=== PATIENT | male | born 1985 | race Caucasian/White ===

== ENCOUNTER → 2016-09-28 | Outpatient (CLI) | payer BC ==
--- NOTE | 2016-09-29 08:55 | XR ---
EXAMINATION TYPE: 3 views thoracic spine. 5 views lumbar spine. DATE OF EXAM: 09/28/2016 5:04 PM COMPARISON: NONE HISTORY: 31-year-old male scoliosis and low back pain. FINDINGS: Thoracic spine: There is gentle dextroconvex curvature of the thoracic spine. There are 12 rib-bearing thoracic verte bral bodies. All pedicles are visualized. No segmentation anomaly seen. Alignment is maintained. Ther e is some mild endplate spondylosis in the lower thoracic spine with anterior endplate spur. Vertebra l body heights are preserved. Lumbar spine: 5 lumbar type vertebral bodies. A right oblique view is missing. Suggestion of minimal disc interspac e narrowing at L4-L5 and associated mild facet degenerative change. Vertebral body heights are preser neda and alignment is maintained. IMPRESSION: 1. Gentle dextroconvex curvature of the thoracic spine could reflect underlying scoliosis or muscle s pasm. 2. Mild endplate spondylosis lower thoracic spine without vertebral compression collapse or malalignm ent. 3. Mild degenerative disc disease in the lumbar spine especially at L4-L5 with mild facet arthropathy . No vertebral compression collapse or malalignment. 4. The right oblique view of the lumbar spine is missing. There are 2 left oblique views submitted.
== END | disposition home or self-care (01) ==
LOC: RADXRYALE 15:06
PROVIDERS: ATTEND Nurse Practitioner Family
DX: M41.9 Scoliosis, unspecified (principal); M51.36 Other intervertebral disc degeneration, lumbar region; M12.88 Other specific arthropathies, not elsewhere classified, other specified site
CPT/HCPCS: 72072; 72110

== ENCOUNTER → 2018-04-20 | Outpatient (CLI) | payer BC ==
--- NOTE | 2018-04-20 10:10 | XR ---
EXAMINATION TYPE: XR orbit detect foreign body DATE OF EXAM: 04/20/2018 COMPARISON: NONE HISTORY: MRI clearance TECHNIQUE: 3 views of the orbits are submitted. FINDINGS: No radiopaque foreign body identified. Paranasal sinuses well aerated. Osseous structures i ntact. IMPRESSION: No evidence for radiopaque foreign body.
--- NOTE | 2018-04-20 12:57 | MR ---
EXAMINATION TYPE: MR lumbar spine wo con DATE OF EXAM: 04/20/2018 COMPARISON: HISTORY: Low back pain TECHNIQUE: Multiplanar, multisequence images of the lumbar spine were acquired. FINDINGS: Vertebral body heights and alignment are maintained. Multilevel disc desiccation is seen at L4-L5 and L5-S1. Conus medullaris is unremarkable terminating at L1. L1-L2: Normal disc appearance without desiccation. No herniation, protrusion or disc bulging. No ca nal stenosis is present. Foramina are patent bilaterally. L2-L3: Normal disc appearance without desiccation. No herniation, protrusion or disc bulging. No ca nal stenosis is present. Foramina are patent bilaterally. L3-L4: Small broad-based disc bulge is seen without focality. No spinal canal stenosis nor neural for aminal narrowing. L4-L5: There is a small central disc herniation superimposed upon a broad-based disc bulge resulting in mild bilateral neural foraminal narrowing. There is mild impression upon the ventral thecal sac wi thout significant spinal canal stenosis. Mild facet arthropathy is also seen at this level. L5-S1: There is a left foraminal disc herniation and annular tear creating mild left neural foraminal narrowing. Discogenic endplate changes are seen at this level. Mild facet arthropathy is also noted. No right neural foraminal narrowing or spinal canal stenosis. IMPRESSION: 1. Small central disc herniation at L4-L5 superimposed upon a broad-based disc bulge with resultant m ild bilateral neural foraminal narrowing. 2. Left foraminal disc herniation at L5-S1 creating mild left neural foraminal narrowing. 3. Small disc bulge at L3-L4 without spinal canal stenosis nor neural foraminal narrowing.
== END | disposition home or self-care (01) ==
LOC: RADMRIMAIN 09:36
PROVIDERS: ATTEND Family Medicine
DX: Z01.818 Encounter for other preprocedural examination (principal); M99.73 Connective tissue and disc stenosis of intervertebral foramina of lumbar region; M51.27 Other intervertebral disc displacement, lumbosacral region
CPT/HCPCS: 70030; 72148

== ENCOUNTER 2018-07-04 07:42 | Day surgery (SDC) | payer BC ==
[2018-06-29 17:58] VITALS: BMI 25.7
[~2018-07-04 07:42] MED LIST: LACTATED RINGERS 1,000 ML IV SCH; LIDOCAINE 1% 20 ML VIAL (10MG/ML) FOR IV START INTRADERMA PRN
[2018-07-04 08:06] VITALS: RESP 16; TEMP 98.8
[2018-07-04] MEDS ORDERED: PROPOFOL 10 MG/ML 20 ML VIAL IV ONE (08:43)
--- NOTE | 2018-07-04 09:10 | P.PCN ---
Date of Procedure: 07/04/18 Procedure(s) Performed: Procedure: Total colonoscopy. Preoperative diagnosis: Change in bowel habits and family history of Crohn's disease in his brother. Postoperative diagnosis: Exam of the colon and terminal ileum within normal limits. Preparation: HalfLytely prep. Sedation: Was provided by anesthesia. Brief clinical history: The patient is a 53-year-old male who is scheduled for this evaluation because of bowel issues including constipation that requires treatment with amitiza for relief. This was a change for him. There is also family history of Crohn's disease in his brother. This evaluation is to assess for inflammatory bowel disease or other pathology. Procedure: With the patient on his left lateral decubitus position and after informed consent and adequate sedation, the perianal area was inspected and it did not show any fissures or fistulas. There were no masses felt on digital rectal examination. The Olympus CFH 190L video colonoscope was then inserted in the rectum in the usual fashion and advanced to the cecum. I intubated the ileocecal valve and examined the terminal ileum. Terminal ileum and colon appeared healthy with no edema, erythema, friability, ulceration, exudation or spontaneous bleeding. No polyps or tumors were seen or any obvious diverticular disease or other pathology. I retroflexed the endoscope in the rectum before the endoscope was withdrawn. The patient tolerated the procedure well. Plan: The patient was reassured. Discussed dietary measures. He will follow up with you as planned and further plans will be made based on his course. I will be happy to see him in the future if needed.
[2018-07-04 09:28] VITALS: BP 142/90; PULSE 71
== END 2018-07-04 09:49 | disposition home or self-care (01) ==
LOC: ORWHC2ENDO 07:42
DX: R19.4 Change in bowel habit (principal); Z83.79 Family history of other diseases of the digestive system; K59.00 Constipation, unspecified; Z79.1 Long term (current) use of non-steroidal anti-inflammatories (NSAID); Z79.899 Other long term (current) drug therapy
CPT/HCPCS: 45378; J2704

== ENCOUNTER 2019-11-03 10:13 | Emergency (ER) | payer BC ==
[2019-11-03 10:24] VITALS: RESP 18; TEMP 98.2
[2019-11-03] MEDS ORDERED: RX INFO: IV CONTRAST WAS GIVEN 1 EACH MISC MISCELLANE PRN (10:33)
--- NOTE | 2019-11-03 10:39 | ED ---
General Adult HPI - General Chief complaint: Chest Pain Stated complaint: Chest pain Time Seen by Provider: 11/03/19 10:24 Source: patient, RN notes reviewed Mode of arrival: ambulatory Limitations: no limitations - History of Present Illness Initial comments: 34-year-old male with a past medical history of hypertension presents to the emergency department for a chief complaint of chest pain. Patient has had left- sided anterior chest pain for the past month. Patient states this causes numbness tingling in his left arm. Patient states holding his left arm up to do anything makes this numbness worse. States it starts at 10 minutes in the left arm. Denies any neck pain. Patient is still able to go on his jogs and 15 mile bike rides. He does not have any worsening chest pain with this although may be some shortness of breath. Patient was started on antihypertensives and he saw his doctor last week for this. States his blood pressure still been high and when he checked it at home it was different in his 2 arms. Patient reports he had just started on losartan hydrochlorothiazide one week ago. Patient denies smoking history. Denies hypercholesterolemia. Denies history of diabetes. Patient has no other complaints at this time including shortness of breath, abdominal pain, nausea or vomiting, headache, or visual changes. - Related Data Home Medications Medication Instructions Recorded Confirmed Losartan/Hydrochlorothiazide 1 tab PO DAILY 11/03/19 11/03/19 [Losartan-Hctz 100-12.5 mg Tab] traMADol HCL 50 mg PO Q4H PRN 11/03/19 11/03/19 Allergies Allergy/AdvReac Type Severity Reaction Status Date / Time No Known Allergies Allergy Verified 11/03/19 10:50 Review of Systems ROS Statement: Those systems with pertinent positive or pertinent negative responses have been documented in the HPI. ROS Other: All systems not noted in ROS Statement are negative. Past Medical History Past Medical History: Hypertension Additional Past Medical History / Comment(s): BACK PAIN History of Any Multi-Drug Resistant Organisms: None Reported Past Surgical History: Back Surgery, Hernia Repair Additional Past Surgical History / Comment(s): HERNIA REPAIR IN 7TH GRADE. Past Anesthesia/Blood Transfusion Reactions: Postoperative Nausea & Vomiting (PONV) Past Psychological History: No Psychological Hx Reported Smoking Status: Never smoker Past Alcohol Use History: Occasional Past Drug Use History: None Reported - Past Family History Mother Family Medical History: No Reported History General Exam Limitations: no limitations General appearance: alert, in no apparent distress Head exam: Present: atraumatic, normocephalic, normal inspection Eye exam: Present: normal appearance, PERRL, EOMI. Absent: scleral icterus, conjunctival injection ENT exam: Present: normal exam, mucous membranes moist Neck exam: Present: normal inspection, full ROM. Absent: tenderness, meningismus, lymphadenopathy Respiratory exam: Present: normal lung sounds bilaterally. Absent: respiratory distress, wheezes, rales, rhonchi, stridor Cardiovascular Exam: Present: regular rate, normal rhythm, normal heart sounds. Absent: systolic murmur, diastolic murmur, rubs, gallop, clicks GI/Abdominal exam: Present: soft, normal bowel sounds. Absent: distended, tenderness, guarding, rebound, rigid Extremities exam: Present: normal inspection (Normal inspection of the bilateral upper extremities.), full ROM (Full range of motion of the bilateral upper extremities.), normal capillary refill (Capillary refill less than 2 seconds, radial pulses 2+ in the bilateral upper extremities.), other (Sensation intact bilaterally in upper extremities.) Course Vital Signs 11/03/19 11/03/19 11/03/19 10:19 10:24 11:59 Temperature 98.2 F Pulse Rate 72 85 Respiratory 18 18 Rate Blood Pressure 128/87 Blood Pressure 159/115 [Left Arm] Blood Pressure 177/104 [Right Arm] O2 Sat by Pulse 100 97 Oximetry Medical Decision Making - Medical Decision Making Patient initially presents hypertensive however this did improve throughout his stay. Patient concerned about different blood pressures in his arms and associated left-sided chest pain times one month. Patient states he noticed this morning when he checked his blood pressure on his arms for times.. Blood pressure is 18 mmHg difference systolically. Patient has a history of hypertension, no history of diabetes, hypercholesterolemia, smoking. EKG shows a normal sinus rhythm with a ventricular rate of 70. CBC CMP unremarkable. Troponin is negative. CT aorta chest abdomen pelvis shows a punctate 1 mm nonobstructing left renal stone. Heterogenous enhancement of the spleen, recommending short-term follow-up to exclude mass. The aorta is of normal caliber. Pain likely to be more musculoskeletal in nature given positioning of arm increases the paresthesia in the left arm. Chest pain is reproducible on exam. Patient will follow-up with his doctor for further management and ultrasound of the spleen which was discussed with him. He will also be given referral to orthopedics. He will return here for any worsening symptoms. - Lab Data Result diagrams: 11/03/19 10:40 11/03/19 10:40 Lab Results 11/03/19 11/03/19 11/03/19 Range/Units 10:40 10:40 10:40 WBC 5.9 (3.8-10.6) k/uL RBC 4.77 (4.30-5.90) m/uL Hgb 15.4 (13.0-17.5) gm/dL Hct 45.0 (39.0-53.0) % MCV 94.3 (80.0-100.0) fL MCH 32.4 (25.0-35.0) pg MCHC 34.3 (31.0-37.0) g/dL RDW 12.9 (11.5-15.5) % Plt Count 143 L (150-450) k/uL Neutrophils % 56 % Lymphocytes % 29 % Monocytes % 7 % Eosinophils % 3 % Basophils % 1 % Neutrophils # 3.3 (1.3-7.7) k/uL Lymphocytes # 1.7 (1.0-4.8) k/uL Monocytes # 0.4 (0-1.0) k/uL Eosinophils # 0.2 (0-0.7) k/uL Basophils # 0.0 (0-0.2) k/uL PT (9.0-12.0) sec INR (<1.2) APTT (22.0-30.0) sec Sodium 137 (137-145) mmol/L Potassium 4.3 (3.5-5.1) mmol/L Chloride 104 (98-107) mmol/L Carbon Dioxide 20 L (22-30) mmol/L Anion Gap 13 mmol/L BUN 20 (9-20) mg/dL Creatinine 1.01 (0.66-1.25) mg/dL Est GFR (CKD-EPI)AfAm >90 (>60 ml/min/1.73 sqM) Est GFR (CKD-EPI)NonAf >90 (>60 ml/min/1.73 sqM) Glucose 100 H (74-99) mg/dL Calcium 10.2 (8.4-10.2) mg/dL Magnesium 2.0 (1.6-2.3) mg/dL Total Bilirubin 1.0 (0.2-1.3) mg/dL AST 40 (17-59) U/L ALT 27 (4-49) U/L Alkaline Phosphatase 101 (38-126) U/L Troponin I <0.012 (0.000-0.034) ng/mL Total Protein 8.0 (6.3-8.2) g/dL Albumin 4.9 (3.5-5.0) g/dL Amylase 82 (30-110) U/L Lipase 115 (23-300) U/L 11/03/19 Range/Units 11:15 WBC (3.8-10.6) k/uL RBC (4.30-5.90) m/uL Hgb (13.0-17.5) gm/dL Hct (39.0-53.0) % MCV (80.0-100.0) fL MCH (25.0-35.0) pg MCHC (31.0-37.0) g/dL RDW (11.5-15.5) % Plt Count (150-450) k/uL Neutrophils % % Lymphocytes % % Monocytes % % Eosinophils % % Basophils % % Neutrophils # (1.3-7.7) k/uL Lymphocytes # (1.0-4.8) k/uL Monocytes # (0-1.0) k/uL Eosinophils # (0-0.7) k/uL Basophils # (0-0.2) k/uL PT 9.8 (9.0-12.0) sec INR 0.9 (<1.2) APTT 22.9 (22.0-30.0) sec Sodium (137-145) mmol/L Potassium (3.5-5.1) mmol/L Chloride (98-107) mmol/L Carbon Dioxide (22-30) mmol/L Anion Gap mmol/L BUN (9-20) mg/dL Creatinine (0.66-1.25) mg/dL Est GFR (CKD-EPI)AfAm (>60 ml/min/1.73 sqM) Est GFR (CKD-EPI)NonAf (>60 ml/min/1.73 sqM) Glucose (74-99) mg/dL Calcium (8.4-10.2) mg/dL Magnesium (1.6-2.3) mg/dL Total Bilirubin (0.2-1.3) mg/dL AST (17-59) U/L ALT (4-49) U/L Alkaline Phosphatase (38-126) U/L Troponin I (0.000-0.034) ng/mL Total Protein (6.3-8.2) g/dL Albumin (3.5-5.0) g/dL Amylase (30-110) U/L Lipase (23-300) U/L Disposition Clinical Impression: Atypical chest pain, Paresthesia Disposition: HOME SELF-CARE Condition: Good Instructions (If sedation given, give patient instructions): Chest Pain (ED) Additional Instructions: please take motrin and tylenol for pain. Return to the emergency department if you have any worsening symptoms. Otherwise follow-up with your doctor in one to 2 days in regards to this problem as well as ultrasound of the spleen. You may follow up with orthopedics as well. Return to the emergency department for any other worsening symptoms. Is patient prescribed a controlled substance at d/c from ED?: No Referrals: Johana Pollock DO [Primary Care Provider] - 1-2 days Ricky Mccracken MD [STAFF PHYSICIAN] - 1-2 days Time of Disposition: 12:20
[2019-11-03 10:58] LABS: Basophils % (A) 1 %; Eosinophils # (A) 0.2 k/uL (0-0.7); Eosinophils % (A) 3 %; HGB 15.4 gm/dL (13.0-17.5); Lymphocytes # (A) 1.7 k/uL (1.0-4.8); Lymphocytes % (A) 29 %; MCH 32.4 pg (25.0-35.0); MCHC 34.3 g/dL (31.0-37.0); MCV 94.3 fL (80.0-100.0); Mean Platelet Volume 7.5; Monocytes # (A) 0.4 k/uL (0-1.0); Monocytes % (A) 7 %; Neutrophils # (A) 3.3 k/uL (1.3-7.7); Neutrophils % (A) 56 %; Platelet Count 143 k/uL (150-450); RBC 4.77 m/uL (4.30-5.90); RDW 12.9 % (11.5-15.5); WBC 5.9 k/uL (3.8-10.6)
[2019-11-03 11:13] LABS: ALT 27 U/L (4-49); AST 40 U/L (17-59); African American GFR (CKD) >90 (>60 ml/min/1.73 sqM); Albumin 4.9 g/dL (3.5-5.0); Alkaline Phosphatase 101 U/L (38-126); Amylase 82 U/L (30-110); Anion Gap 13 mmol/L; Blood Urea Nitrogen 20 mg/dL (9-20); Calcium 10.2 mg/dL (8.4-10.2); Carbon Dioxide 20 mmol/L (22-30); Chloride 104 mmol/L (98-107); Glucose 100 mg/dL (74-99); Non-African American GFR(CKD) >90 (>60 ml/min/1.73 sqM); Potassium 4.3 mmol/L (3.5-5.1); Sodium 137 mmol/L (137-145)
--- NOTE | 2019-11-03 11:38 | CT ---
EXAMINATION TYPE: CT angio thor/abd pel aorta DATE OF EXAM: 11/03/2019 COMPARISON: HISTORY: Left sided chest pains CT DLP: 1900.1 mGycm. Automated Exposure Control for Dose Reduction was Utilized. CONTRAST: CT scan of the thorax, abdomen and pelvis is performed without and with IV Contrast, patient injected with 100 mL of Isovue 370. FINDINGS: LUNGS: The lungs are grossly clear, there is no concerning parenchymal mass or nodule identified. T here is no pleural effusion or pneumothorax seen. The tracheobronchial tree is patent. MEDIASTINUM: There are no greater than 1 cm hilar or mediastinal lymph nodes. No pericardial effusi on is seen. Aorta of normal caliber. OTHER: No additional significant abnormality is seen. LIVER/GB: Calcification involving the liver suggestive of a granuloma. Could not exclude a splenic ma ss with heterogeneous enhancement recommend follow-up ultrasound.. PANCREAS: No significant abnormality is seen. SPLEEN: No significant abnormality is seen. ADRENALS: No significant abnormality is seen. KIDNEYS: Punctate 1 mm nonobstructing left renal stone.. BOWEL: No significant abnormality is seen. LYMPH NODES: No greater than 1cm abdominal or pelvic lymph nodes are appreciated. OSSEOUS STRUCTURES: No significant abnormality is seen. OTHER: Aorta of normal caliber. Small fat-containing periumbilical hernia. IMPRESSION: 1. Punctate 1 mm nonobstructing left renal stone. 2. Heterogeneous enhancement of the spleen. This could be related to red pulp white pulp phenomenon. However, slightly nodular component for which short-term follow-up ultrasound recommended to exclude mass.
[2019-11-03 11:50] LABS: INR 0.9 (<1.2); Partial Thromboplastin Time 22.9 sec (22.0-30.0); Prothrombin Time 9.8 sec (9.0-12.0)
[2019-11-03 12:29] VITALS: BP 139/94; PULSE 81
== END 2019-11-03 12:45 | disposition home or self-care (01) ==
LOC: EC 10:13
DX: R07.89 Other chest pain (principal); R20.2 Paresthesia of skin; N20.0 Calculus of kidney; I10 Essential (primary) hypertension; Z79.899 Other long term (current) drug therapy
CPT/HCPCS: 36415; 93005; 80053; 82150; 83690; 83735; 84484; 85025; 85610; 85730; 71275; 74174; 99285; Q9967

== ENCOUNTER → 2019-11-20 | Outpatient (CLI) | payer BC ==
--- NOTE | 2019-11-21 07:01 | US ---
EXAMINATION TYPE: US abdomen complete DATE OF EXAM: 11/20/2019 COMPARISON: CT 2019 CLINICAL HISTORY: Abn CT R93.819. Abnormal CT EXAM MEASUREMENTS: Liver Length: 15.9 cm Gallbladder Wall: 0.2 cm CBD: 0.3 cm Spleen: 10.8 cm Right Kidney: 9.5 x 4.1 x 4.3 cm Left Kidney: 9.4 x 4.9 x 4.5 cm Pancreas: visualized portions wnl, limited by overlying midline bowel gas Liver: 2.0 x 1.9 x 2.1cm hyperechoic area right lobe Gallbladder: wnl Evidence for sonographic Horowitz's sign: no CBD: visualized portions wnl, limited by overlying bowel gas Spleen: wnl Right Kidney: wnl Left Kidney: wnl Upper IVC: wnl Abd Aorta: wnl The liver is homogenous. The intrahepatic portion of the IVC and proximal abdominal aorta are within normal limits. There is no evidence of cholelithiasis. Common bile duct is unremarkable. The visu alized portions of the pancreas are homogenous. The spleen is unremarkable. Kidneys are symmetric a nd free of hydronephrosis. No renal lesions are seen. IMPRESSION: Hyperechoic lesion right hepatic lobe may reflect a hemangioma. This could be confirmed with hemangio ma protocol CT of the liver.
== END | disposition home or self-care (01) ==
LOC: RADUSWWP 16:12
PROVIDERS: ATTEND Nurse Practitioner Family
DX: R93.819 Abnormal radiologic findings on diagnostic imaging of unspecified testicle (principal)
CPT/HCPCS: 76700

== ENCOUNTER 2022-03-21 23:16 | Emergency (ER) | payer BC ==
[2022-03-21 23:32] VITALS: RESP 20; TEMP 97.6
[2022-03-21] MEDS ORDERED: ONDANSETRON 4 MG/2 ML VIAL IVP STA (23:43)
[2022-03-21] MEDS ORDERED: KETOROLAC 15 MG/ML 1 ML VIAL IVP STA (23:43)
[2022-03-21] MEDS ORDERED: SODIUM CHLORIDE 0.9% 1,000 ML IV STA (23:43)
[2022-03-22 00:24] LABS: Basophils # (A) 0.1 k/uL (0-0.2); Basophils % (A) 1 %; Eosinophils # (A) 0.3 k/uL (0-0.7); Eosinophils % (A) 3 %; HCT 40.1 % (39.0-53.0); HGB 14.4 gm/dL (13.0-17.5); Lymphocytes % (A) 33 %; MCH 32.3 pg (25.0-35.0); MCV 89.9 fL (80.0-100.0); Mean Platelet Volume 7.7; Monocytes # (A) 0.5 k/uL (0-1.0); Monocytes % (A) 6 %; Neutrophils # (A) 4.9 k/uL (1.3-7.7); Neutrophils % (A) 55 %; Platelet Count 165 k/uL (150-450); RBC 4.46 m/uL (4.30-5.90); RDW 12.9 % (11.5-15.5); WBC 8.9 k/uL (3.8-10.6)
[2022-03-22 00:37] LABS: Albumin 4.6 g/dL (3.5-5.0); Calcium 9.6 mg/dL (8.4-10.2); Potassium 3.8 mmol/L (3.5-5.1); Total Bilirubin 0.2 mg/dL (0.2-1.3); Total Protein 7.2 g/dL (6.3-8.2)
--- NOTE | 2022-03-22 00:39 | ED ---
Abdominal Pain HPI - General Chief Complaint: Abdominal Pain Stated Complaint: Abdominal Pain Time Seen by Provider: 03/21/22 23:36 Source: patient, RN notes reviewed Mode of arrival: ambulatory Limitations: no limitations - History of Present Illness Initial Comments: 37-year-old male presents to the emergency Department with complaints of left lower quadrant abdominal pain. Patient states this pain has been ongoing intermittently for the past month, however worsened this evening. Patient states the pain does not correlate with any oral intake. He does report pain is aggravated by increasing pressure in the abdomen such as when sitting upright or leaning forward. Reports tolerating oral intake without difficulty. Has had occasional episodes of diarrhea though reports normal formed stool today. Has had episodes of mild nausea but denies vomiting. No fever, chills, headache, dizziness, chest pain, shortness of breath, dysuria, hematuria, or flank pain. - Related Data Home Medications Medication Instructions Recorded Confirmed Losartan/Hydrochlorothiazide 1 tab PO DAILY 11/03/19 11/03/19 [Losartan-Hctz 100-12.5 mg Tab] traMADol HCL 50 mg PO Q4H PRN 11/03/19 11/03/19 Allergies Allergy/AdvReac Type Severity Reaction Status Date / Time tree nut Allergy Unknown Verified 03/21/22 23:32 Review of Systems ROS Statement: Those systems with pertinent positive or pertinent negative responses have been documented in the HPI. ROS Other: All systems not noted in ROS Statement are negative. Past Medical History Past Medical History: Hypertension Additional Past Medical History / Comment(s): BACK PAIN History of Any Multi-Drug Resistant Organisms: None Reported Past Surgical History: Back Surgery, Hernia Repair Additional Past Surgical History / Comment(s): HERNIA REPAIR IN 7TH GRADE. Past Anesthesia/Blood Transfusion Reactions: Postoperative Nausea & Vomiting (PONV) Past Psychological History: No Psychological Hx Reported Smoking Status: Never smoker Past Alcohol Use History: Occasional Past Drug Use History: None Reported - Past Family History Mother Family Medical History: No Reported History General Exam Limitations: no limitations (Well-developed, well-nourished male in no acute distress. Initial temperature 97.6, pulse 107, respirations 20, blood pressure 153/89, pulse ox 99% on room air.) General appearance: alert, in no apparent distress ENT exam: Present: normal oropharynx, mucous membranes moist Respiratory exam: Present: normal lung sounds bilaterally. Absent: respiratory distress, wheezes, rales, rhonchi, stridor Cardiovascular Exam: Present: regular rate, normal rhythm, normal heart sounds. Absent: systolic murmur, diastolic murmur, rubs, gallop, clicks GI/Abdominal exam: Present: soft, tenderness (Tenderness upon palpation of the left lower quadrant), normal bowel sounds. Absent: distended, guarding, rebound, rigid Back exam: Absent: CVA tenderness (R), CVA tenderness (L) Neurological exam: Present: alert, oriented X3, CN II-XII intact Psychiatric exam: Present: normal affect, normal mood Course Vital Signs 03/21/22 03/22/22 23:30 01:36 Temperature 97.6 F Pulse Rate 107 H 96 Respiratory 20 20 Rate Blood Pressure 153/89 124/75 O2 Sat by Pulse 99 99 Oximetry Medical Decision Making - Medical Decision Making 37-year-old male with no significant past medical history presents to the emergency Department with complaints of left lower quadrant abdominal pain. Physical exam findings are unremarkable. Patient was given IV fluids, pain medication, and nausea medicine with improvement. Laboratory studies are unremarkable. CT is negative. Patient is reassured by findings. Encouraged to follow up with PCP for further evaluation and treatment pain is ongoing. Return parameters were discussed in detail. Patient verbalizes understanding and agrees with this plan. Attending: Kennedi. - Lab Data Result diagrams: 03/21/22 23:43 03/21/22 23:43 Lab Results 03/21/22 03/21/22 03/21/22 Range/Units 23:43 23:43 23:43 WBC 8.9 (3.8-10.6) k/uL RBC 4.46 (4.30-5.90) m/uL Hgb 14.4 (13.0-17.5) gm/dL Hct 40.1 (39.0-53.0) % MCV 89.9 (80.0-100.0) fL MCH 32.3 (25.0-35.0) pg MCHC 36.0 (31.0-37.0) g/dL RDW 12.9 (11.5-15.5) % Plt Count 165 (150-450) k/uL MPV 7.7 Neutrophils % 55 % Lymphocytes % 33 % Monocytes % 6 % Eosinophils % 3 % Basophils % 1 % Neutrophils # 4.9 (1.3-7.7) k/uL Lymphocytes # 3.0 (1.0-4.8) k/uL Monocytes # 0.5 (0-1.0) k/uL Eosinophils # 0.3 (0-0.7) k/uL Basophils # 0.1 (0-0.2) k/uL Sodium 137 (137-145) mmol/L Potassium 3.8 (3.5-5.1) mmol/L Chloride 99 (98-107) mmol/L Carbon Dioxide 23 (22-30) mmol/L Anion Gap 15 mmol/L BUN 15 (9-20) mg/dL Creatinine 1.33 H (0.66-1.25) mg/dL Est GFR (CKD-EPI)AfAm 78 (>60 ml/min/1.73 sqM) Est GFR (CKD-EPI)NonAf 68 (>60 ml/min/1.73 sqM) Glucose 123 H (74-99) mg/dL Plasma Lactic Acid Omid 1.7 (0.7-2.0) mmol/L Calcium 9.6 (8.4-10.2) mg/dL Total Bilirubin 0.2 (0.2-1.3) mg/dL AST 35 (17-59) U/L ALT 38 (4-49) U/L Alkaline Phosphatase 104 (38-126) U/L Total Protein 7.2 (6.3-8.2) g/dL Albumin 4.6 (3.5-5.0) g/dL Urine Color Urine Appearance (Clear) Urine pH (5.0-8.0) Ur Specific [place] (1.001-1.035) Urine Protein (Negative) Urine Glucose (UA) (Negative) Urine Ketones (Negative) Urine Blood (Negative) Urine Nitrite (Negative) Urine Bilirubin (Negative) Urine Urobilinogen (<2.0) mg/dL Ur Leukocyte Esterase (Negative) 03/22/22 Range/Units 00:06 WBC (3.8-10.6) k/uL RBC (4.30-5.90) m/uL Hgb (13.0-17.5) gm/dL Hct (39.0-53.0) % MCV (80.0-100.0) fL MCH (25.0-35.0) pg MCHC (31.0-37.0) g/dL RDW (11.5-15.5) % Plt Count (150-450) k/uL MPV Neutrophils % % Lymphocytes % % Monocytes % % Eosinophils % % Basophils % % Neutrophils # (1.3-7.7) k/uL Lymphocytes # (1.0-4.8) k/uL Monocytes # (0-1.0) k/uL Eosinophils # (0-0.7) k/uL Basophils # (0-0.2) k/uL Sodium (137-145) mmol/L Potassium (3.5-5.1) mmol/L Chloride (98-107) mmol/L Carbon Dioxide (22-30) mmol/L Anion Gap mmol/L BUN (9-20) mg/dL Creatinine (0.66-1.25) mg/dL Est GFR (CKD-EPI)AfAm (>60 ml/min/1.73 sqM) Est GFR (CKD-EPI)NonAf (>60 ml/min/1.73 sqM) Glucose (74-99) mg/dL Plasma Lactic Acid Omid (0.7-2.0) mmol/L Calcium (8.4-10.2) mg/dL Total Bilirubin (0.2-1.3) mg/dL AST (17-59) U/L ALT (4-49) U/L Alkaline Phosphatase (38-126) U/L Total Protein (6.3-8.2) g/dL Albumin (3.5-5.0) g/dL Urine Color Colorless Urine Appearance Clear (Clear) Urine pH 6.0 (5.0-8.0) Ur Specific [place] 1.006 (1.001-1.035) Urine Protein Negative (Negative) Urine Glucose (UA) Negative (Negative) Urine Ketones Negative (Negative) Urine Blood Negative (Negative) Urine Nitrite Negative (Negative) Urine Bilirubin Negative (Negative) Urine Urobilinogen <2.0 (<2.0) mg/dL Ur Leukocyte Esterase Negative (Negative) - Radiology Data Radiology results: report reviewed, image reviewed CT of the abdomen and pelvis with contrast was obtained. Report was reviewed in its entirety. Impression per Dr. Lovelace is negative computed tomography scan abdomen and pelvis. No evidence of diverticulitis. No adverse change. Disposition Clinical Impression: Abdominal pain Disposition: HOME SELF-CARE Condition: Stable Instructions (If sedation given, give patient instructions): Abdominal Pain (ED) Additional Instructions: Your CT scan does not show any concerning findings. Follow-up with your PCP for a recheck if pain persists. Return to the emergency department with any new, worsening, or concerning symptoms. Is patient prescribed a controlled substance at d/c from ED?: No Referrals: Johana Pollock DO [Primary Care Provider] - 1-2 days Time of Disposition: 01:21
[2022-03-22 00:41] LABS: Appearance,Urine Clear (Clear); Bilirubin,Urine Negative (Negative); Blood,Urine Negative (Negative); Color,Urine Colorless; Glucose,Urine (UA) Negative (Negative); Ketones,Urine Negative (Negative); Leukocyte Esterase,Urine Negative (Negative); Nitrite,Urine Negative (Negative); Protein,Urine Negative (Negative); Specific Gravity,Urine 1.006 (1.001-1.035); Urobilinogen,Urine <2.0 mg/dL (<2.0)
--- NOTE | 2022-03-22 01:05 | CT ---
EXAMINATION TYPE: CT abdomen pelvis w con DATE OF EXAM: 03/22/2022 COMPARISON: 11/03/2019 HISTORY: LLQ abdominal pain, suspect diverticulitis CT DLP: 1342.9 mGycm Automated exposure control for dose reduction was used. CONTRAST: Performed with IV Contrast, patient injected with 100 mL of Isovue 300. Images obtained from the diaphragm to the floor the pelvis with the IV contrast. The lung bases are clear. No pleural effusion. Heart size is normal. No pericardial effusion. Liver has normal size. Gallbladder appears normal. Spleen is intact. No pancreatic mass. There is 2 c m hypodensity in the right lobe of the liver that appears to show delayed enhancement and consistent with hemangioma. There is no adrenal mass. Kidneys show satisfactory contrast opacification. No hydronephrosis. Ureter s are not dilated. Appendix is posterior and appears normal. There is no retroperitoneal adenopathy. Bladder distends smoothly. No inguinal hernia. No free fluid in the pelvis. No pelvic mass. There is no mesenteric edema. No ascites or free air. No sign of a bowel obstruction. There are a few isolated sigmoid diverticula. No diverticulitis. The lumbar vertebra have fairly normal alignment. There is mild narrowing at L4-5 discs. No compressi on fracture. Posterior elements are intact. The bony pelvis is intact. The hip joints are intact. Sac rum and coccyx are intact. IMPRESSION: Negative CT scan abdomen and pelvis. No evidence of diverticulitis. No adverse change.
[2022-03-22 01:37] VITALS: BP 124/75; PULSE 96
== END 2022-03-22 01:37 | disposition home or self-care (01) ==
LOC: EC 23:16
DX: R10.32 Left lower quadrant pain (principal); I10 Essential (primary) hypertension; Z79.811 Long term (current) use of aromatase inhibitors
CPT/HCPCS: 36415; 80053; 83605; 85025; 81003; 74177; 99284; 96374; 96375; 96361; J2405; J1885; Q9967

== ENCOUNTER → 2024-02-11 | Outpatient (CLI) | payer BC ==
--- NOTE | 2024-02-11 11:05 | CA ---
Transthoracic Echo Report Name: John Gale Age: 39 Gender: M : 1985 Exam Date: 02/11/2024 08:32 Exam Location: [place] [facility] Ht (in): 76 Wt (lb): 225 Ordering Physician: Johana Pollock DO Attending/Referring Phys: Nuha Contreras [facility] F[employer] And Wellness Manager Letty Fernandez RDCS Procedure CPT: Indications: R55 SYNCOPE AND COLLAPSE Cardiac Hx: Technical Quality: Fair Contrast 1: Total Dose (mL): Contrast 2: Total Dose (mL): MEASUREMENTS (Male / Female) Normal Values 2D ECHO LV Diastolic Diameter PLAX 4.1 cm 4.2 - 5.9 / 3.9 - 5.3 cm LV Systolic Diameter PLAX 2.8 cm IVS Diastolic Thickness 1.2 cm 0.6 - 1.0 / 0.6 - 0.9 cm LVPW Diastolic Thickness 1.2 cm 0.6 - 1.0 / 0.6 - 0.9 cm LV Relative Wall Thickness 0.6 RV Internal Dim ED PLAX 3.3 cm LVOT Diameter 1.8 cm LA Volume 50.4 cm??? 18 - 58 / 22 - 52 cm??? LA Volume Index 21.4 cm???/m??? 16 - 28 cm???/m??? M-MODE Aortic Root Diameter MM 3.1 cm LA Systolic Diameter MM 3.8 cm LA Ao Ratio MM 1.2 AV Cusp Separation MM 2.2 cm DOPPLER AV Peak Velocity 129.0 cm/s AV Peak Gradient 6.7 mmHg AV Mean Velocity 96.8 cm/s AV Mean Gradient 4.0 mmHg AV Velocity Time Integral 27.6 cm LVOT Peak Velocity 89.1 cm/s LVOT Peak Gradient 3.2 mmHg LVOT Velocity Time Integral 16.9 cm LVOT Stroke Volume 43.7 cm??? LVOT Stroke Volume Index 18.7 ml/m??? LVOT Cardiac Index 1058.5 cm???/min???m??? AV Area Cont Eq vti 1.6 cm??? AV Area Cont Eq pk 1.8 cm??? MV E' Velocity 16.8 cm/s FINDINGS Left Ventricle Mildly increased left ventricular wall thickness. Left ventricular cavity size normal. Normal left ventricular systolic function with no obvious regional wall motion abnormalities. Left ventricular ejection fraction is estimated at 55-60 %. Right Ventricle Normal right ventricular size and function. Right Atrium Normal right atrial size. Left Atrium Normal left atrial size. Mitral Valve Structurally normal mitral valve. No mitral stenosis. Trace to mild mitral regurgitation. Aortic Valve Trileaflet aortic valve. No aortic valve stenosis or regurgitation. Tricuspid Valve Structurally normal tricuspid valve. Mild tricuspid regurgitation. Pulmonic Valve Structurally normal pulmonic valve. Pericardium No pericardial effusion. Aorta Normal size aortic root and proximal ascending aorta. CONCLUSIONS Diagnosis syncope Mild LVH with preserved systolic function Normal RV size and function Previewed by: Dr. Efrain Jones MD (Electronically Signed) Final Date: 11 February 2024 11:04
--- NOTE | 2024-02-11 19:26 | US ---
EXAMINATION TYPE: US carotid duplex BILAT DATE OF EXAM: 02/11/2024 COMPARISON: NONE CLINICAL INDICATION: Male, 39 years old with history of R55 SYNCOPE AND COLLAPSE; dizziness TECHNIQUE: Carotid duplex ultrasound examination. Indirect Doppler criteria was utilized. FINDINGS: EXAM MEASUREMENTS: RIGHT: Peak Systolic Velocity (PSV) cm/sec ----- Right CCA: 83.7 ----- Right ICA: 110.8 ----- Right ECA: 133.8 ICA/CCA ratio: 1.3 RIGHT: End Diastole cm/sec ----- Right CCA: 25.6 ----- Right ICA: 26.8 ----- Right ECA: 23.5 LEFT: Peak Systolic Velocity (PSV) cm/sec ----- Left CCA: 106.2 ----- Left ICA: 120 ----- Left ECA: 88.5 ICA/CCA ratio: 1.1 LEFT: End Diastole cm/sec ----- Left CCA: 31.3 ----- Left ICA: 53 ----- Left ECA: 21.5 VERTEBRALS (direction of flow): Right Vertebral: Antegrade Left Vertebral: Antegrade Rhythm: Normal EUCLID OPERATOR NOTES: No significant stenosis seen IMPRESSION: 1. No significant flow-limiting stenosis bilateral carotid bifurcations Criteria for Assigning % of Stenosis / Diameter reduction (Estimation based on the indirect measurements of the internal carotid artery velocities (ICA PSV). 1. Normal (no stenosis)=ICA PSV < 125 cm/s: ratio < 2.0: ICA EDV<40 cm/s. 2. Less than 50% stenosis=ICA PSV < 125 cm/s: ratio < 2.0: ICA EDV<40 cm/s. 3. 50 to 69% stenosis=ICA PSV of 125 to 230 cm/s: ration 2.0 ? 4.0: ICA EDV 40-100 cm/s. 4. Greater than 70% stenosis to near occlusion= ICA PSV > 230 cm/s: ratio > 4.0: ICA EDV > 100 cm/s. 5. Near occlusion= ICA PSV velocities may be low or undetectable: variable ratio and ICA EDV. 6. Total occlusion=unable to detect flow. [facility], , 02/11/2024 7:23 PM
== END | disposition home or self-care (01) ==
LOC: RADUSWWP 07:57
PROVIDERS: ATTEND Family Medicine
DX: R55 Syncope and collapse
CPT/HCPCS: 93306; 93880

== ENCOUNTER 2024-04-15 12:07 | Observation (INO) | payer BC ==
--- NOTE | 2024-04-15 12:44 | ED ---
General Adult HPI - General Chief complaint: Back Pain/Injury Stated complaint: Back pain Time Seen by Provider: 04/15/24 12:18 Source: patient, RN notes reviewed Mode of arrival: ambulatory Limitations: no limitations - History of Present Illness Initial comments: This is a 39-year-old male presenting with constant right lower back pain (8/10) x 7 days. Patient states pain started suddenly while he was asleep 1 week ago. Patient Dors is history of back surgeries but states this pain feels different. States pain is worse (10/10) when supine and with deep inhalation. States pain is better with movement and when upright. States pain radiates to right flank and right shoulder blade, described as "shocking". Patient also mentions mild fever (90 9.5F), body aches, fatigue and increased urinary frequency. Endorses use of previously prescribed muscle relaxers with minimal relief after prior UA revealed no concerning findings. Patient denies chills, chest pain, dyspnea, abdominal pain, N/V/D, constipation, dysuria, hematuria, hemoptysis, dizziness. Patient denies history of of kidney stones and still has his appendix and gallbladder. Onset/Timin -: days(s) Location: back, right Radiation: flank Severity scale (1-10): 8 Quality: other ("Shocking") Consistency: constant Improves with: other (Being upright) Worsens with: other (Supine) Associated Symptoms: fever/chills, other (Fatigue, body aches) Treatments Prior to Arrival: other (Muscle relaxers) - Related Data Home Medications Medication Instructions Recorded Confirmed Baclofen [Lioresal] 10 mg PO TID PRN 04/15/24 04/15/24 Losartan Potassium 100 mg PO DAILY 04/15/24 04/15/24 atenoloL [Tenormin] 25 mg PO DAILY 04/15/24 04/15/24 Allergies Allergy/AdvReac Type Severity Reaction Status Date / Time tree nut Allergy drooling Verified 04/15/24 16:18 Review of Systems ROS Statement: Those systems with pertinent positive or pertinent negative responses have been documented in the HPI. ROS Other: All systems not noted in ROS Statement are negative. Past Medical History Past Medical History: Hypertension Additional Past Medical History / Comment(s): BACK PAIN History of Any Multi-Drug Resistant Organisms: None Reported Past Surgical History: Back Surgery, Hernia Repair Additional Past Surgical History / Comment(s): HERNIA REPAIR IN 7TH GRADE. Past Anesthesia/Blood Transfusion Reactions: Postoperative Nausea & Vomiting (PONV) Past Psychological History: No Psychological Hx Reported Smoking Status: Never smoker Past Alcohol Use History: Occasional Past Drug Use History: None Reported - Past Family History Mother Family Medical History: No Reported History General Exam Limitations: no limitations General appearance: alert, in no apparent distress Head exam: Present: atraumatic, normocephalic, normal inspection Eye exam: Present: normal appearance, PERRL, EOMI. Absent: scleral icterus, conjunctival injection, periorbital swelling ENT exam: Present: normal exam, mucous membranes moist Neck exam: Present: normal inspection. Absent: tenderness, meningismus, lymphadenopathy Respiratory exam: Present: normal lung sounds bilaterally. Absent: respiratory distress, wheezes, rales, rhonchi, stridor, accessory muscle use, decreased breath sounds Cardiovascular Exam: Present: regular rate, normal rhythm, normal heart sounds. Absent: systolic murmur, diastolic murmur, rubs, gallop, clicks GI/Abdominal exam: Present: soft, tenderness (Positive tenderness right lower quadrant, right upper quadrant, epigastric region and suprapubic region. Negative tympanic tenderness. Positive McBurney's point and Horowitz sign), guarding (Involuntary guarding in right lower quadrant, right upper quadrant, epigastric and suprapubic region), normal bowel sounds. Absent: distended, rebound, rigid Extremities exam: Present: normal inspection, full ROM, normal capillary refill. Absent: tenderness, pedal edema, joint swelling, calf tenderness Back exam: Present: normal inspection, CVA tenderness (R). Absent: tenderness, CVA tenderness (L), muscle spasm, paraspinal tenderness, vertebral tenderness Neurological exam: Present: alert, oriented X3, CN II-XII intact Psychiatric exam: Present: normal affect, normal mood Skin exam: Present: warm, dry, intact, normal color. Absent: rash Course Vital Signs 04/15/24 04/15/24 12:13 15:48 Temperature 98 F Pulse Rate 87 67 Respiratory 18 16 Rate Blood Pressure 163/100 146/93 O2 Sat by Pulse 98 99 Oximetry Medical Decision Making - Medical Decision Making Was pt. sent in by a medical professional or institution (, PA, [employer] SUPERVISOR, urgent care, hospital, or custodial...) When possible be specific @ -No Did you speak to anyone other than the patient for history (EMS, parent, family, police, friend...)? What history was obtained from this source @ -No Did you review nursing and triage notes (agree or disagree)? Why? @ -I reviewed and agree with nursing and triage notes Were old charts reviewed (outside hosp., previous admission, EMS record, old EKG, old radiological studies, urgent care reports/EKG's, custodial records)? Report findings @ -No old charts were reviewed Differential Diagnosis (chest pain, altered mental status, abdominal pain women, abdominal pain men, vaginal bleeding, weakness, fever, dyspnea, syncope, headache, dizziness, GI bleed, back pain, seizure, CVA, palpatations, mental health, musculoskeletal)? @ -Differential Back Pain: Strain, zoster, cauda equina syndrome, epidural abscess, vertebral osteomyelitis, discitis, fracture, subluxation, disc herniation, DJD, spinal stenosis, dissection, AAA, pancreatitis, peptic ulcer disease, pyelonephritis, kidney stone, this is not meant to be an all-inclusive list. EKG interpreted by me (3pts min.). @ -Sinus rhythm without ST changes or T wave inversion. Q waves noted in inferior and lateral leads. Ventricular rate 70 bpm, LOREN 135 ms, QRS duration 100 ms, QTc 368 ms. X-rays interpreted by me (1pt min.). @ -Chest x-ray showed small right-sided pleural effusion with linear discoid atelectasis. CT interpreted by me (1pt min.). @ -Abdominal pelvis CT showed no acute abdominal or pelvic processes. Chest CTA shows right lower lobe pulmonary embolism with infarction and no evidence of right heart strain. U/S interpreted by me (1pt. min.). @ -None done What testing was considered but not performed or refused? (CT, X-rays, U/S, labs)? Why? @ -None What meds were considered but not given or refused? Why? @ -None Did you discuss the management of the patient with other professionals (professionals i.e. , PA, DIMENSION QUARRY SUPERVISOR, lab, RT, psych nurse, social worker school, motor assembler, teacher, toxics program officer, case management manager)? Give summary @ -Spoke to Dr. Sheet regarding patient's condition who advised recheck blood pressure and consult Dr. Limon. Was smoking cessation discussed for >3mins.? @ -No Was critical care preformed (if so, how long)? @ -Critical care performed via heparin infusion for pulmonary embolism with infarction Were there social determinants of health that impacted care today? How? (Homelessness, low income, unemployed, alcoholism, drug addiction, transport ation, low edu. Level, literacy, decrease access to med. care, longterm, rehab)? @ -No Was there de-escalation of care discussed even if they declined (Discuss DNR or withdrawal of care, Hospice)? DNR status @ -No What co-morbidities impacted this encounter? (DM, HTN, Smoking, COPD, CAD, Cancer, CVA, ARF, Chemo, Hep., AIDS, mental health diagnosis, sleep apnea, morbid obesity)? @ -None Was patient admitted / discharged? Hospital course, mention meds given and route, prescriptions, significant lab abnormalities, going to OR and other pertinent info. @ -Lab work shows elevated D-dimer (1.44) and liver enzymes. UA was negative. Chest x-ray showed small right-sided pleural effusion with linear discoid atelectasis. Abdominal pelvis CT showed no acute abdominal or pelvic processes. Upon return of elevated D-dimer, chest CTA shows right lower lobe pulmonary embolism with infarction and no evidence of right heart strain. Small right pleural effusion also noted. Patient started on high intensity IV heparin and [facility] notified via Dr. Padilla for inpatient admission. Undiagnosed new problem with uncertain prognosis? @ -Pulmonary embolism with infarction Drug Therapy requiring intensive monitoring for toxicity (Heparin, Nitro, Insulin, Cardizem)? @ -Heparin infusion Were any procedures done? @ -No Diagnosis/symptom? @ -Pulmonary embolism with infarction Acute, or Chronic, or Acute on Chronic? @ -Acute Uncomplicated (without systemic symptoms) or Complicated (systemic symptoms)? @ -Complicated Side effects of treatment? @ -No Exacerbation, Progression, or Severe Exacerbation? @ -No Poses a threat to life or bodily function? How? (Chest pain, USA, CT, pneumonia, PE, COPD, DKA, ARF, appy, cholecystitis, CVA, Diverticulitis, Homicidal, Suicidal, threat to staff... and all critical care pts) @ -No - Lab Data Result diagrams: 04/15/24 12:37 04/15/24 12:37 Lab Results 04/15/24 04/15/24 04/15/24 Range/Units 12:16 12:37 12:37 WBC 8.1 (3.8-10.6) k/uL RBC 4.54 (4.30-5.90) m/uL Hgb 14.3 (13.0-17.5) gm/dL Hct 42.7 (39.0-53.0) % MCV 93.9 (80.0-100.0) fL MCH 31.4 (25.0-35.0) pg MCHC 33.4 (31.0-37.0) g/dL RDW 13.2 (11.5-15.5) % Plt Count 176 (150-450) k/uL MPV 7.2 Neutrophils % 64 % Lymphocytes % 22 % Monocytes % 9 % Eosinophils % 2 % Basophils % 0 % Neutrophils # 5.2 (1.3-7.7) k/uL Lymphocytes # 1.8 (1.0-4.8) k/uL Monocytes # 0.7 (0-1.0) k/uL Eosinophils # 0.2 (0-0.7) k/uL Basophils # 0.0 (0-0.2) k/uL PT 9.7 L (10.0-12.5) sec INR 0.9 (<1.2) APTT 25.8 (22.0-30.0) sec D-Dimer 1.44 H (<0.60) mg/L FEU Sodium (137-145) mmol/L Potassium (3.5-5.1) mmol/L Chloride (98-107) mmol/L Carbon Dioxide (22-30) mmol/L Anion Gap mmol/L BUN (9-20) mg/dL Creatinine (0.66-1.25) mg/dL Est GFR (CKD-EPI)AfAm (>60 ml/min/1.73 sqM) Est GFR (CKD-EPI)NonAf (>60 ml/min/1.73 sqM) Glucose (74-99) mg/dL Plasma Lactic Acid Omid (0.7-2.0) mmol/L Calcium (8.4-10.2) mg/dL Total Bilirubin (0.2-1.3) mg/dL AST (17-59) U/L ALT (4-49) U/L Alkaline Phosphatase (38-126) U/L Troponin I (0.000-0.034) ng/mL Total Protein (6.3-8.2) g/dL Albumin (3.5-5.0) g/dL Amylase (30-110) U/L Lipase (23-300) U/L Urine Color Colorless Urine Appearance Clear (Clear) Urine pH 6.0 (5.0-8.0) Ur Specific Henniker 1.007 (1.001-1.035) Urine Protein Negative (Negative) Urine Glucose (UA) Negative (Negative) Urine Ketones Negative (Negative) Urine Blood Negative (Negative) Urine Nitrite Negative (Negative) Urine Bilirubin Negative (Negative) Urine Urobilinogen <2.0 (<2.0) mg/dL Ur Leukocyte Esterase Negative (Negative) 04/15/24 04/15/24 04/15/24 Range/Units 12:37 12:37 12:37 WBC (3.8-10.6) k/uL RBC (4.30-5.90) m/uL Hgb (13.0-17.5) gm/dL Hct (39.0-53.0) % MCV (80.0-100.0) fL MCH (25.0-35.0) pg MCHC (31.0-37.0) g/dL RDW (11.5-15.5) % Plt Count (150-450) k/uL MPV Neutrophils % % Lymphocytes % % Monocytes % % Eosinophils % % Basophils % % Neutrophils # (1.3-7.7) k/uL Lymphocytes # (1.0-4.8) k/uL Monocytes # (0-1.0) k/uL Eosinophils # (0-0.7) k/uL Basophils # (0-0.2) k/uL PT (10.0-12.5) sec INR (<1.2) APTT (22.0-30.0) sec D-Dimer (<0.60) mg/L FEU Sodium 141 (137-145) mmol/L Potassium 4.3 (3.5-5.1) mmol/L Chloride 107 (98-107) mmol/L Carbon Dioxide 26 (22-30) mmol/L Anion Gap 8 mmol/L BUN 14 (9-20) mg/dL Creatinine 1.30 H (0.66-1.25) mg/dL Est GFR (CKD-EPI)AfAm 79 (>60 ml/min/1.73 sqM) Est GFR (CKD-EPI)NonAf 69 (>60 ml/min/1.73 sqM) Glucose 105 H (74-99) mg/dL Plasma Lactic Acid Omid 1.2 (0.7-2.0) mmol/L Calcium 9.9 (8.4-10.2) mg/dL Total Bilirubin 0.7 (0.2-1.3) mg/dL AST 34 (17-59) U/L ALT 61 H (4-49) U/L Alkaline Phosphatase 128 H (38-126) U/L Troponin I <0.012 (0.000-0.034) ng/mL Total Protein 7.4 (6.3-8.2) g/dL Albumin 4.3 (3.5-5.0) g/dL Amylase 49 (30-110) U/L Lipase 114 (23-300) U/L Urine Color Urine Appearance (Clear) Urine pH (5.0-8.0) Ur Specific Henniker (1.001-1.035) Urine Protein (Negative) Urine Glucose (UA) (Negative) Urine Ketones (Negative) Urine Blood (Negative) Urine Nitrite (Negative) Urine Bilirubin (Negative) Urine Urobilinogen (<2.0) mg/dL Ur Leukocyte Esterase (Negative) Disposition Clinical Impression: Pulmonary embolism and infarction Disposition: ADMITTED IP TO THIS HOSP Condition: Good Is patient prescribed a controlled substance at d/c from ED?: No Time of Disposition: 15:13 Decision Date: 04/15/24 Decision Time: 15:13
--- NOTE | 2024-04-15 13:06 | XR ---
EXAMINATION TYPE: XR chest 2V DATE OF EXAM: 04/15/2024 CLINICAL HISTORY: Right side pain with inhalation TECHNIQUE: Frontal and lateral views of the chest are obtained. COMPARISON: None FINDINGS: Small right-sided pleural effusion with linear discoid atelectasis. The left lung is clear. The cardiac silhouette size is within normal limits. The osseous structures are intact. IMPRESSION: Small right-sided pleural effusion with linear discoid atelectasis. [facility], , 04/15/2024 1:03 PM
[2024-04-15] MEDS: KETOROLAC 15 MG/ML 1 ML VIAL IVP STA (13:10)
[2024-04-15 13:20] LABS: Basophils % (A) 0 %; Eosinophils # (A) 0.2 k/uL (0-0.7); Eosinophils % (A) 2 %; HCT 42.7 % (39.0-53.0); HGB 14.3 gm/dL (13.0-17.5); Lymphocytes # (A) 1.8 k/uL (1.0-4.8); Lymphocytes % (A) 22 %; MCH 31.4 pg (25.0-35.0); MCHC 33.4 g/dL (31.0-37.0); MCV 93.9 fL (80.0-100.0); Mean Platelet Volume 7.2; Monocytes # (A) 0.7 k/uL (0-1.0); Monocytes % (A) 9 %; Neutrophils # (A) 5.2 k/uL (1.3-7.7); Neutrophils % (A) 64 %; Platelet Count 176 k/uL (150-450); RBC 4.54 m/uL (4.30-5.90); RDW 13.2 % (11.5-15.5); WBC 8.1 k/uL (3.8-10.6)
[2024-04-15 13:21] LABS: Appearance,Urine Clear (Clear); Bilirubin,Urine Negative (Negative); Blood,Urine Negative (Negative); Color,Urine Colorless; Glucose,Urine (UA) Negative (Negative); Ketones,Urine Negative (Negative); Leukocyte Esterase,Urine Negative (Negative); Nitrite,Urine Negative (Negative); Protein,Urine Negative (Negative); Specific Gravity,Urine 1.007 (1.001-1.035); Urobilinogen,Urine <2.0 mg/dL (<2.0)
[2024-04-15 13:33] LABS: ALT 61 U/L (4-49); AST 34 U/L (17-59); African American GFR (CKD) 79 (>60 ml/min/1.73 sqM); Albumin 4.3 g/dL (3.5-5.0); Alkaline Phosphatase 128 U/L (38-126); Amylase 49 U/L (30-110); Anion Gap 8 mmol/L; Blood Urea Nitrogen 14 mg/dL (9-20); Calcium 9.9 mg/dL (8.4-10.2); Carbon Dioxide 26 mmol/L (22-30); Chloride 107 mmol/L (98-107); Glucose 105 mg/dL (74-99); Lipase 114 U/L (23-300); Non-African American GFR(CKD) 69 (>60 ml/min/1.73 sqM); Potassium 4.3 mmol/L (3.5-5.1); Sodium 141 mmol/L (137-145); Total Bilirubin 0.7 mg/dL (0.2-1.3); Total Protein 7.4 g/dL (6.3-8.2)
[2024-04-15 13:34] LABS: INR 0.9 (<1.2); Partial Thromboplastin Time 25.8 sec (22.0-30.0); Prothrombin Time 9.7 sec (10.0-12.5)
--- NOTE | 2024-04-15 14:26 | CT ---
EXAMINATION TYPE: CT abdomen pelvis w con DATE OF EXAM: 04/15/2024 2:16 PM COMPARISON: Multiple prior CT abdomen/pelvis studies, most recently dated 03/22/2022. CLINICAL INDICATION: Male, 39 years old with history of Right back and flank pain; RT flank and back pain TECHNIQUE: Axial CT abdomen pelvis w con;Sagittal and coronal reformats were created on a separate w orkstation. Contrast used:100 mL of Isovue 370 with IV Contrast, (none if empty) Oral contrast used: without Oral Contrast (none if empty) CT DLP: 1703.1 mGycm, Automated exposure control for dose reduction was used. FINDINGS: LOWER CHEST: Partially visualized small right pleural effusion with adjacent lower lobe consolidative changes which reflect compressive atelectasis and/or pneumonia. ABDOMEN LIVER: Hypodense lesion in the right hepatic lobe measuring 3.0 x 2.4 cm, previously described as a b enign hemangioma on prior study 03/22/2022, slightly increasing in size. GALLBLADDER AND BILE DUCTS: Unremarkable. PANCREAS: Unremarkable. SPLEEN: Unremarkable. ADRENAL GLANDS: Unremarkable. KIDNEYS AND URETERS: No evidence of hydronephrosis or renal calculus. The ureters are unremarkable. PELVIS BLADDER: No evidence for wall thickening or mass given limitations of exam. REPRODUCTIVE: Unremarkable. ABDOMEN & PELVIS STOMACH AND BOWEL: Stomach and duodenum are unremarkable No evidence of bowel obstruction. PERITONEUM/RETROPERITONEUM: No evidence of pneumoperitoneum or free fluid. VASCULATURE: No evidence of aortic aneurysm. MUSCULOSKELETAL: No acute osseous abnormalities LYMPH NODES: No gross evidence for lymphadenopathy. SOFT TISSUE/ABDOMINAL WALL: Unremarkable small fat-containing periumbilical hernia. IMPRESSION: 1. No acute abnormality in the abdomen/pelvis. 2. Small right pleural effusion with adjacent right lower lobe consolidative changes which could ref lect atelectasis and/or pneumonia. [facility], , 04/15/2024 2:24 PM
--- NOTE | 2024-04-15 14:35 | CT ---
EXAMINATION TYPE: CT angio chest DATE OF EXAM: 04/15/2024 2:18 PM COMPARISON: Chest radiograph from same day. Multiple CTs of the chest with most recent on . CLINICAL INDICATION: Male, 39 years old with history of Elevated D-dimer; Chest and back pain, elevat ed dimer TECHNIQUE/CONTRAST: CTA scan of the thorax is performed with IV Contrast, patient injected with 100 mL of Isovue 370, MIP images are created and reviewed these are created on a separate workstation.. CT DLP: 1703.1 mGycm, Automated exposure control for dose reduction was used. FINDINGS: Pulmonary Artery: Low-density filling defects within a right lower lobe segmental pulmonary artery ex tending into the subsegmental pulmonary artery branches. No evidence of acute pulmonary embolism with in the main pulmonary arteries. The pulmonary artery is of normal size. No definite elevation of the RV/LV ratio at this time. There is straightening of the interventricular septum without obvious bowi ng. Lungs/Pleura: There is a small right lower lobe pleural effusion with developing consolidative change s which could reflect pulmonary infarction. No pneumothorax. No left-sided pleural effusion or focal consolidation. Airway: Large airways are patent. Heart: Heart is within normal limits for size. Vasculature: No evidence of aortic aneurysm. Mediastinum: No gross evidence of adenopathy. Musculoskeletal: No acute osseous abnormalities Soft Tissues/lymph nodes: Unremarkable. Lower neck: No significant findings. Upper Abdomen: No significant findings. IMPRESSION: 1. Right lower lobe segmental and subsegmental acute pulmonary emboli with likely developing right l ower lobe pulmonary infarct. No convincing CT evidence of right heart strain at this time. 2. Small right pleural effusion. *Critical findings were discussed with Doyle NELSON at 2:28 pm on 04/15/2024. [facility], , 04/15/2024 2:33 PM
[2024-04-15] MEDS ORDERED: HEPARIN SODIUM 1,000 UN/ML (10ML VL) IV PRN (14:38)
[2024-04-15] MEDS ORDERED: NALOXONE 0.4 MG/ML 1 ML VIAL IV PRN (15:09)
[2024-04-15] MEDS: HEPARIN SOD,PORK IN 0.45% NACL 25,000 UNIT in 0.45% NACL 1 250ML.BAG IV SCH (15:38)
[2024-04-15] MEDS: HEPARIN SODIUM 1,000 UN/ML (10ML VL) IV ONE (15:40)
[2024-04-15 21:49] LABS: Basophils % (A) 0 %; Eosinophils # (A) 0.2 k/uL (0-0.7); Eosinophils % (A) 3 %; HCT 40.2 % (39.0-53.0); HGB 13.3 gm/dL (13.0-17.5); Lymphocytes # (A) 2.5 k/uL (1.0-4.8); Lymphocytes % (A) 30 %; MCH 30.7 pg (25.0-35.0); MCV 93.1 fL (80.0-100.0); Mean Platelet Volume 7.4; Monocytes # (A) 0.4 k/uL (0-1.0); Monocytes % (A) 5 %; Neutrophils # (A) 5.1 k/uL (1.3-7.7); Neutrophils % (A) 61 %; Platelet Count 181 k/uL (150-450); RBC 4.32 m/uL (4.30-5.90); RDW 13.5 % (11.5-15.5); WBC 8.4 k/uL (3.8-10.6)
[2024-04-15 21:57] LABS: INR 0.9 (<1.2); Partial Thromboplastin Time 64.6 sec (22.0-30.0)
--- NOTE | 2024-04-16 07:55 | US ---
EXAMINATION TYPE: US venous doppler duplex LE DATE OF EXAM: 04/16/2024 7:41 AM COMPARISON: CTA chest CLINICAL INDICATION: Male, 39 years old with history of leg swelling; PE, TECHNIQUE: The lower extremity deep venous system is examined utilizing real time linear array sonog gael with graded compression, color doppler sonography, and spectral doppler. SIDE PERFORMED: Bilateral FINDINGS: VESSELS IMAGED: Common Femoral Vein Deep Femoral Vein Greater Saphenous Vein * Femoral Vein Popliteal Vein Small Saphenous Vein * Proximal Calf Veins (* superficial vessels) The deep venous systems of both lower extremities from the common femoral remains to the proximal vicki f veins are patent and compressible with augmentable flow and with normal waveforms. There is a 3.5 x 5.4 x 2.0 cm fluid collection in the right popliteal fossa consistent with a Llanes's cyst. IMPRESSION: No evidence of bilateral lower extremity DVT from the common femoral veins to the proximal calf veins . Large Llanes cyst in the right popliteal fossa [facility], Workstation: [facility] 04/16/2024 7:53 AM
--- NOTE | 2024-04-16 08:58 | P.HPIM ---
History of Present Illness This is a pleasant 39 years old male with past medical history of hypertension Presents because of right lower back pain, close to the spine, started last Wednesday about 1 week ago where it woke up him from sleep. He rates the pain as 7/10 but increased with lying flat up to 10/10. Currently not so bad and he looks comfortable and pain controlled He describes the pain like shocking feeling. And it is worse with deep breath to the degree he has to stop and hold his breath because of the pain. However patient denies coughing and the pain is not affected by coughing as well. No other chest pain. No leg pain or swelling He has mild headache but no dizziness weakness or numbness. No overt GI/ symptoms. No fever or chills. He denies smoking. Drinks alcohol occasionally and no illicit drugs. He is hemodynamically stable and currently on room air He has unremarkable CBC, BMP, liver enzymes, INR and troponin less than 0.012 Urine analysis is unremarkable D-dimer is elevated 1.4 Venous ultrasound is negative for DVT but showing right popliteal [place]'s cyst EKG showing sinus rhythm at [address]-T changes Chest x-ray reviewed. CTA of the chest showing right lower lobe acute pulmonary embolism with right lower lobe pulmonary infarct CT of the abdomen and pelvis was negative for acute process showing right lower lobe atelectasis, pneumonia felt less likely Patient currently started on heparin drip Patient also denies history of blood disease disorder either in him or his family. Review of Systems Review of systems CONSTITUTIONAL: No fever, no malaise, no fatigue. HEENT: No recent visual problems or hearing problems. Denied any sore throat. CARDIOVASCULAR: No orthopnea, PND, no palpitations, no syncope. PULMONARY: No shortness of breath, no cough, no hemoptysis. GASTROINTESTINAL: No diarrhea, no nausea, no vomiting, no abdominal pain. Normoactive bowel sounds. NEUROLOGICAL: No headaches, no weakness, no numbness. HEMATOLOGICAL: Denies any bleeding or petechiae. GENITOURINARY: Denies any burning micturition, frequency, or urgency. MUSCULOSKELETAL/RHEUMATOLOGICAL: Denies any joint pain, swelling, or any muscle pain. ENDOCRINE: Denies any polyuria or polydipsia. Past Medical History Past Medical History: Hypertension Additional Past Medical History / Comment(s): BACK PAIN History of Any Multi-Drug Resistant Organisms: None Reported Past Surgical History: Back Surgery, Hernia Repair Additional Past Surgical History / Comment(s): HERNIA REPAIR IN 7TH GRADE. Past Anesthesia/Blood Transfusion Reactions: Postoperative Nausea & Vomiting (PONV) Past Psychological History: No Psychological Hx Reported Smoking Status: Never smoker Past Alcohol Use History: Occasional Past Drug Use History: None Reported - Past Family History Mother Family Medical History: No Reported History Father Family Medical History: No Reported History Medications and Allergies Home Medications Medication Instructions Recorded Confirmed Type Baclofen [Lioresal] 10 mg PO TID PRN 04/15/24 04/15/24 History Losartan Potassium 100 mg PO DAILY 04/15/24 04/15/24 History atenoloL [Tenormin] 25 mg PO DAILY 04/15/24 04/15/24 History Allergies Allergy/AdvReac Type Severity Reaction Status Date / Time tree nut Allergy drooling Verified 04/15/24 16:18 Physical Exam Vitals: Vital Signs Temp Pulse Pulse Resp BP BP Pulse Ox 04/16/24 07:46 97 04/16/24 04:00 98.3 F 68 18 110/67 97 04/16/24 00:10 98 F 68 18 141/85 99 04/16/24 00:03 82 18 130/91 96 04/15/24 19:45 69 16 137/83 97 04/15/24 18:00 70 16 141/86 98 04/15/24 15:48 67 16 146/93 99 04/15/24 12:13 98 F 87 18 163/100 98 Intake and Output 04/15/24 04/16/24 04/16/24 22:59 06:59 14:59 Intake Total 132.071 99.133 Balance 132.071 99.133 Intake: Intake, IV Titration 132.071 99.133 Amount Heparin Sod,Pork in 0.45% 132.071 99.133 NaCl 25,000 unit In 0.45 % NaCl 1 250ml.bag @ 18 UNITS/KG/HR 19.187 mls/hr IV .Q13H2M [facility] Rx#: [id number] Other: # Voids 1 Weight 104.3 kg GENERAL: The patient is alert and oriented x3, not in any acute distress. Well developed, well nourished. HEENT: Pupils are round and equally reacting to light. EOMI. No scleral icterus. No conjunctival pallor. Normocephalic, atraumatic. No pharyngeal erythema. No thyromegaly. CARDIOVASCULAR: S1 and S2 present. No murmurs, rubs, or gallops. PULMONARY: Chest is clear to auscultation, no wheezing , no crackles. ABDOMEN: Soft, nontender, nondistended, normoactive bowel sounds. No palpable organomegaly. -MUSCULOSKELETAL: No joint swelling or deformity. No tenderness in the right lower area of the chest, close to the spine where it hurtr per the patient EXTREMITIES: No cyanosis, clubbing, or pedal edema. NEUROLOGICAL: Gross neurological examination did not reveal any focal deficits. SKIN: No rashes. no petechiae. Results CBC & Chem 7: 04/15/24 21:29 04/15/24 12:37 Labs: Abnormal Lab Results - Last 24 Hours (Table) 04/15/24 04/15/24 04/15/24 Range/Units 12:37 12:37 21:29 PT 9.7 L (10.0-12.5) sec APTT 64.6 H (22.0-30.0) sec D-Dimer 1.44 H (<0.60) mg/L FEU Creatinine 1.30 H (0.66-1.25) mg/dL Glucose 105 H (74-99) mg/dL ALT 61 H (4-49) U/L Alkaline Phosphatase 128 H (38-126) U/L Thrombosis Risk Factor Assmnt - Choose All That Apply Each Factor Represents 1 point: Obesity (BMI >25) Other congenital or acquired thrombophilia - If yes, enter type in comment: No Thrombosis Risk Factor Assessment Total Risk Factor Score: 1 Thrombosis Risk Factor Assessment Level: Low Risk Assessment and Plan Assessment: Acute right lower lobe pulmonary embolism and infarction Right lower back pain most likely secondary to above Hypertension Continue with heparin drip Plan: Continue with heparin drip Pulmonary team were consulted resume his blood pressure medication Further recommendation based on the clinical course Patient would benefit from maintenance porter evaluation but this can be done as an outpatient. Contact information is provided on discharge instruction and patient informed and he agrees DVT prophylaxis GI prophylaxis: Pepcid For further recommendation and review
[2024-04-16] MEDS: FAMOTIDINE 20 MG TAB PO SCH (09:13)
[2024-04-16] MEDS: LOSARTAN-HCTZ 50-12.5 MG 1 EACH TAB PO SCH (09:13)
[2024-04-16] MEDS: atenoloL 25 MG TAB PO SCH (09:13)
[2024-04-16] MEDS: traMADol 50 MG TAB PO PRN (09:23)
[2024-04-16] MEDS: BACLOFEN 10 MG TAB PO PRN (09:23)
[2024-04-16] MEDS: Apixaban Initiation Dose--VTE 5 MG TAB PO SCH (10:03)
--- NOTE | 2024-04-16 11:03 | P.CNPUL ---
History of Present Illness Consult date: 04/16/24 Requesting physician: Karlo aPdilla Reason for consult: dyspnea, chest pain, pulmonary embolism, abnormal CXR/CT Chief complaint: Shortness of breath, back pain. History of present illness: Pulmonary consult dated April 16, 2024. 39-year-old male who presented to the emergency department on April 15, for pain in his right lower back area, for about 5 to 7 days. He apparently states that the pain started suddenly when he was asleep, about 5 to 7 days ago. Apparently the pain was much worse when the patient was moving in different positions, and taking deep breaths. In addition, the patient did have some shortness of breath even at rest. In addition, the patient apparently had a mild temperature elevation. The patient was evaluated, and found to have a pulmonary embolism/pulmonary infarction, with a classic [place] hump, noted on CT scan. This would explain the patient's pleuritic symptoms. Currently, the patient is on room air. He is receiving IV heparin. The patient's IV heparin can be discontinued, the patient can be transitioned to a factor Xa inhibitor. This represents an unprovoked pulmonary embolism. The patient should be treated for at least 6 months. Other medical history includes chronic back pain, chronic back procedures and surgeries, and hypertension. Current laboratory includes a white count 8.4, hemoglobin 13.3, hematocrit 40.2, platelet count is normal. PTT is 43.7. D-dimer was 1.44. Sodium 141, potassium 4.3, chlorides 107, CO2 26, BUN 14, creatinine 1.30. Troponin was normal. Urine was negative. X-ray showed very small right-sided pleural effusion, with some linear atelectasis. The of the abdomen and pelvis was essentially unremarkable. CT angiogram showed right lower lobe segmental and subsegmental acute pulmonary emboli with right lower lobe pulmonary infarct. No evidence of right heart strain. Review of Systems REVIEW OF SYSTEMS: CONSTITUTIONAL: [Negative.] NEUROLOGIC: [ Negative.] HEENT: [ Negative.] CARDIAC: Right sided back pain. PULMONARY: Shortness of breath. GI: [Negative.] : [Negative.] RHEUMATOLOGIC: [ Negative.] IMMUNOLOGIC: [ Negative.] ENDOCRINE: [Negative. ] DERMATOLOGIC: [Negative.] Past Medical History Past Medical History: Hypertension Additional Past Medical History / Comment(s): BACK PAIN History of Any Multi-Drug Resistant Organisms: None Reported Past Surgical History: Back Surgery, Hernia Repair Additional Past Surgical History / Comment(s): HERNIA REPAIR IN 7TH GRADE. Past Anesthesia/Blood Transfusion Reactions: Postoperative Nausea & Vomiting (PONV) Past Psychological History: No Psychological Hx Reported Smoking Status: Never smoker Past Alcohol Use History: Occasional Past Drug Use History: None Reported - Past Family History Mother Family Medical History: No Reported History Father Family Medical History: No Reported History Medications and Allergies Home Medications Medication Instructions Recorded Confirmed Type Baclofen [Lioresal] 10 mg PO TID PRN 04/15/24 04/15/24 History Losartan Potassium 100 mg PO DAILY 04/15/24 04/15/24 History atenoloL [Tenormin] 25 mg PO DAILY 04/15/24 04/15/24 History Allergies Allergy/AdvReac Type Severity Reaction Status Date / Time tree nut Allergy drooling Verified 04/15/24 16:18 Physical Exam Osteopathic Statement: *. No significant issues noted on an osteopathic structural exam other than those noted in the History and Physical/Consult. Vitals: Vital Signs Temp Pulse Pulse Resp BP BP Pulse Ox 04/16/24 09:17 98.0 F 78 18 143/77 97 04/16/24 07:46 97 04/16/24 04:00 98.3 F 68 18 110/67 97 04/16/24 00:10 98 F 68 18 141/85 99 04/16/24 00:03 82 18 130/91 96 04/15/24 19:45 69 16 137/83 97 04/15/24 18:00 70 16 141/86 98 04/15/24 15:48 67 16 146/93 99 04/15/24 12:13 98 F 87 18 163/100 98 Intake and Output 04/15/24 04/16/24 04/16/24 22:59 06:59 14:59 Intake Total 132.071 99.133 511.285 Balance 132.071 99.133 511.285 Intake: Intake, IV Titration 132.071 99.133 111.285 Amount Heparin Sod,Pork in 0.45% 132.071 99.133 111.285 NaCl 25,000 unit In 0.45 % NaCl 1 250ml.bag @ 18 UNITS/KG/HR 19.187 mls/hr IV .Q13H2M [facility] Rx#: [id number] Oral 400 Other: Voiding Method Toilet # Voids 1 1 Weight 104.3 kg No acute distress, oriented 3. HEENT examination is grossly unremarkable. Mucous membranes are moist. No oral lesions. Neck supple. Full range of motion. No adenopathy thyromegaly or neck vein distention. Cardiovascular examination reveals regular rhythm rate. S1-S2 normal. No S3 or S4. No discernible murmur noted. Lungs reveal clear breath sounds. Breath sounds are equal bilaterally. No adventitious lung sounds including wheezes rhonchi or crackles. Abdomen soft bowel sounds are heard. No masses or tenderness. Extremities are intact. No cyanosis clubbing or edema. Skin is without rash or lesion. Neurologic examination is brief but nonfocal. Results - Laboratory Findings CBC and BMP: 04/15/24 21:29 04/15/24 12:37 PT/INR, D-dimer PT 10.0 sec (10.0-12.5) 04/15/24 21: INR 0.9 (<1.2) 04/15/24 21:29 D-Dimer 1.44 mg/L FEU (<0.60) H 04/15/24 12:37 Abnormal lab findings: Abnormal Labs 04/15/24 04/15/24 04/15/24 12:37 12:37 21:29 PT 9.7 L APTT 64.6 H D-Dimer 1.44 H Creatinine 1.30 H Glucose 105 H ALT 61 H Alkaline Phosphatase 128 H 04/16/24 09:45 PT APTT 43.7 H D-Dimer Creatinine Glucose ALT Alkaline Phosphatase - Diagnostic Findings Chest x-ray: image reviewed CT scan - chest: image reviewed U/S of Legs: image reviewed Assessment and Plan Assessment: Acute unprovoked pulmonary embolism, with pulmonary infarction, involving the right lung. No evidence of DVT on venous Doppler. Right posterior pleuritic chest pain, secondary to pulmonary infarction. History of hypertension. Chronic back pain, with previous back surgeries. Plan: Plan dated April 16, 2024. The patient is very stable. He is on room air. He is receiving IV heparin. The patient likely had a pulmonary infarction, involving the right lower lobe. He has a classic [place] hump, noted on the CT scan. The patient is currently on IV heparin. The patient can be transition to a factor Xa inhibitor. This represents an unprovoked pulmonary embolism. 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 I believe he should be treated for 6 months. Additional recommendations and suggestions are forthcoming. Time with Patient: Greater than 30
[2024-04-16 11:17] LABS: African American GFR (CKD) >90 (>60 ml/min/1.73 sqM); Anion Gap 8 mmol/L; Blood Urea Nitrogen 14 mg/dL (9-20); Calcium 9.4 mg/dL (8.4-10.2); Carbon Dioxide 27 mmol/L (22-30); Chloride 103 mmol/L (98-107); Glucose 90 mg/dL (74-99); Non-African American GFR(CKD) 81 (>60 ml/min/1.73 sqM); Potassium 4.6 mmol/L (3.5-5.1); Sodium 138 mmol/L (137-145)
[2024-04-16 11:27] LABS: Basophils % (A) 0 %; Eosinophils # (A) 0.2 k/uL (0-0.7); Eosinophils % (A) 3 %; HCT 40.6 % (39.0-53.0); HGB 13.4 gm/dL (13.0-17.5); Lymphocytes # (A) 1.5 k/uL (1.0-4.8); Lymphocytes % (A) 23 %; MCH 30.7 pg (25.0-35.0); MCHC 33.1 g/dL (31.0-37.0); MCV 92.9 fL (80.0-100.0); Mean Platelet Volume 7.7; Monocytes # (A) 0.4 k/uL (0-1.0); Monocytes % (A) 6 %; Neutrophils # (A) 4.4 k/uL (1.3-7.7); Neutrophils % (A) 66 %; Platelet Count 192 k/uL (150-450); RBC 4.38 m/uL (4.30-5.90); RDW 13.5 % (11.5-15.5); WBC 6.8 k/uL (3.8-10.6)
[2024-04-17 00:19] VITALS: RESP 14
[2024-04-17 11:31] VITALS: BP 128/71; PULSE 56; TEMP 98.2
--- NOTE | 2024-04-17 15:58 | P.PN ---
Subjective Progress Note Date: 04/17/24 39-year-old male who presented to the emergency department on April 15, for pain in his right lower back area, for about 5 to 7 days. He apparently states that the pain started suddenly when he was asleep, about 5 to 7 days ago. Apparently the pain was much worse when the patient was moving in different positions, and taking deep breaths. In addition, the patient did have some shortness of breath even at rest. In addition, the patient apparently had a mild temperature elevation. The patient was evaluated, and found to have a pulmonary embolism/pulmonary infarction, with a classic [place] hump, noted on CT scan. This would explain the patient's pleuritic symptoms. Currently, the patient is on room air. He is receiving IV heparin. The patient's IV heparin can be discontinued, the patient can be transitioned to a factor Xa inhibitor. This represents an unprovoked pulmonary embolism. The patient should be treated for at least 6 months. Other medical history includes chronic back pain, chronic back procedures and surgeries, and hypertension. Current laboratory includes a white count 8.4, hemoglobin 13.3, hematocrit 40.2, platelet count is normal. PTT is 43.7. D-dimer was 1.44. Sodium 141, potassium 4.3, chlorides 107, CO2 26, BUN 14, creatinine 1.30. Troponin was normal. Urine was negative. X-ray showed very small right-sided pleural effusion, with some linear atel ectasis. The of the abdomen and pelvis was essentially unremarkable. CT angiogram showed right lower lobe segmental and subsegmental acute pulmonary emboli with right lower lobe pulmonary infarct. No evidence of right heart strain. 04/16/2024, the patient is being seen for a follow-up. The patient is doing well. No specific complaints. Still having some pleuritic chest pain which is improved significantly. The patient has been diagnosed having a right lower lobe pulmonary embolism and a Doppler of lower extremities have been negative and the patient is hemodynamically stable. The patient is currently on anticoagulation with Eliquis. The patient had a CAT scan of the abdomen and pe lvis that showed a small right-sided pleural effusion and right lower lobe consolidation. Related to pulmonary embolism. No other acute intra-abdominal abnormalities. The white cell count is 6.8 with a hemoglobin 15.4. BUN is 40 with a creatinine of 1.1. UA has been negative. The patient is currently on room air oxygen. Denies having any other complaints. Objective - Vital Signs Vital signs: Vital Signs Temp 98.2 F 04/17/24 11:30 Pulse 56 L 04/17/24 11:30 Resp 14 04/17/24 11:30 BP 128/71 04/17/24 11:30 Pulse Ox 98 04/17/24 11:30 FiO2 Intake & Output 04/16/24 04/17/24 04/17/24 18:59 06:59 18:59 Intake Total 821.285 480 118 Balance 821.285 480 118 Weight 104 kg Intake: IV 10 Invasive Line 1 10 Intake, IV Titration 111.285 Amount Heparin Sod,Pork in 0.45% 111.285 NaCl 25,000 unit In 0.45 % NaCl 1 250ml.bag @ 18 UNITS/KG/HR 19.187 mls/hr IV .Q13H2M [facility] Rx#: [id number] Oral 700 480 118 Other: Voiding Method Toilet Toilet Toilet # Voids 2 2 # Bowel Movements 0 - Exam No acute distress, oriented 3. HEENT examination is grossly unremarkable. Mucous membranes are moist. No oral lesions. Neck supple. Full range of motion. No adenopathy thyromegaly or neck vein distention. Cardiovascular examination reveals regular rhythm rate. S1-S2 normal. No S3 or S4. No discernible murmur noted. Lungs reveal clear breath sounds. Breath sounds are equal bilaterally. No adventitious lung sounds including wheezes rhonchi or crackles. Abdomen soft bowel sounds are heard. No masses or tenderness. Extremities are intact. No cyanosis clubbing or edema. Skin is without rash or lesion. Neurologic examination is brief but nonfocal. - Labs CBC & Chem 7: 04/16/24 09:45 04/16/24 09:45 Assessment and Plan Plan: Acute unprovoked pulmonary embolism, with pulmonary infarction, involving the right lung. No evidence of DVT on venous Doppler. The patient is doing well. Patient is anticoagulation with Eliquis. Hemodynamically stable. Currently on room air oxygen. Clinically, improving and the pain is subsided. Right posterior pleuritic chest pain, secondary to pulmonary infarction. History of hypertension. Chronic back pain, with previous back surgeries. Plan: Clear for discharge from pulmonary standpoint Continue anticoagulation per protocol for pulmonary embolism initially with Eliquis 10 mg twice a day to be switched to 5 mg in 1 week twice daily Follow-up on outpatient basis regarding pulmonary embolism. This is an unprovoked event and will deserve further workup including hypercoagulable workup at a later stage. Pain is subsided
--- NOTE | 2024-04-26 22:12 | ED ---
Medical Decision Making - Medical Decision Making Heparin infusion critical care time of 31 minutes. *Addendum created on 04/26/2024 at 10:12 PM - Lab Data Result diagrams: 04/16/24 09:45 04/16/24 09:45 Lab Results 04/15/24 04/15/24 04/15/24 Range/Units 12:16 12:37 12:37 WBC 8.1 (3.8-10.6) k/uL RBC 4.54 (4.30-5.90) m/uL Hgb 14.3 (13.0-17.5) gm/dL Hct 42.7 (39.0-53.0) % MCV 93.9 (80.0-100.0) fL MCH 31.4 (25.0-35.0) pg MCHC 33.4 (31.0-37.0) g/dL RDW 13.2 (11.5-15.5) % Plt Count 176 (150-450) k/uL MPV 7.2 Neutrophils % 64 % Lymphocytes % 22 % Monocytes % 9 % Eosinophils % 2 % Basophils % 0 % Neutrophils # 5.2 (1.3-7.7) k/uL Lymphocytes # 1.8 (1.0-4.8) k/uL Monocytes # 0.7 (0-1.0) k/uL Eosinophils # 0.2 (0-0.7) k/uL Basophils # 0.0 (0-0.2) k/uL PT 9.7 L (10.0-12.5) sec INR 0.9 (<1.2) APTT 25.8 (22.0-30.0) sec D-Dimer 1.44 H (<0.60) mg/L FEU Sodium (137-145) mmol/L Potassium (3.5-5.1) mmol/L Chloride (98-107) mmol/L Carbon Dioxide (22-30) mmol/L Anion Gap mmol/L BUN (9-20) mg/dL Creatinine (0.66-1.25) mg/dL Est GFR (CKD-EPI)AfAm (>60 ml/min/1.73 sqM) Est GFR (CKD-EPI)NonAf (>60 ml/min/1.73 sqM) Glucose (74-99) mg/dL Plasma Lactic Acid Omid (0.7-2.0) mmol/L Calcium (8.4-10.2) mg/dL Total Bilirubin (0.2-1.3) mg/dL AST (17-59) U/L ALT (4-49) U/L Alkaline Phosphatase (38-126) U/L Troponin I (0.000-0.034) ng/mL Total Protein (6.3-8.2) g/dL Albumin (3.5-5.0) g/dL Amylase (30-110) U/L Lipase (23-300) U/L Urine Color Colorless Urine Appearance Clear (Clear) Urine pH 6.0 (5.0-8.0) Ur Specific [place] 1.007 (1.001-1.035) Urine Protein Negative (Negative) Urine Glucose (UA) Negative (Negative) Urine Ketones Negative (Negative) Urine Blood Negative (Negative) Urine Nitrite Negative (Negative) Urine Bilirubin Negative (Negative) Urine Urobilinogen <2.0 (<2.0) mg/dL Ur Leukocyte Esterase Negative (Negative) 04/15/24 04/15/24 04/15/24 Range/Units 12:37 12:37 12:37 WBC (3.8-10.6) k/uL RBC (4.30-5.90) m/uL Hgb (13.0-17.5) gm/dL Hct (39.0-53.0) % MCV (80.0-100.0) fL MCH (25.0-35.0) pg MCHC (31.0-37.0) g/dL RDW (11.5-15.5) % Plt Count (150-450) k/uL MPV Neutrophils % % Lymphocytes % % Monocytes % % Eosinophils % % Basophils % % Neutrophils # (1.3-7.7) k/uL Lymphocytes # (1.0-4.8) k/uL Monocytes # (0-1.0) k/uL Eosinophils # (0-0.7) k/uL Basophils # (0-0.2) k/uL PT (10.0-12.5) sec INR (<1.2) APTT (22.0-30.0) sec D-Dimer (<0.60) mg/L FEU Sodium 141 (137-145) mmol/L Potassium 4.3 (3.5-5.1) mmol/L Chloride 107 (98-107) mmol/L Carbon Dioxide 26 (22-30) mmol/L Anion Gap 8 mmol/L BUN 14 (9-20) mg/dL Creatinine 1.30 H (0.66-1.25) mg/dL Est GFR (CKD-EPI)AfAm 79 (>60 ml/min/1.73 sqM) Est GFR (CKD-EPI)NonAf 69 (>60 ml/min/1.73 sqM) Glucose 105 H (74-99) mg/dL Plasma Lactic Acid Omid 1.2 (0.7-2.0) mmol/L Calcium 9.9 (8.4-10.2) mg/dL Total Bilirubin 0.7 (0.2-1.3) mg/dL AST 34 (17-59) U/L ALT 61 H (4-49) U/L Alkaline Phosphatase 128 H (38-126) U/L Troponin I <0.012 (0.000-0.034) ng/mL Total Protein 7.4 (6.3-8.2) g/dL Albumin 4.3 (3.5-5.0) g/dL Amylase 49 (30-110) U/L Lipase 114 (23-300) U/L Urine Color Urine Appearance (Clear) Urine pH (5.0-8.0) Ur Specific [place] (1.001-1.035) Urine Protein (Negative) Urine Glucose (UA) (Negative) Urine Ketones (Negative) Urine Blood (Negative) Urine Nitrite (Negative) Urine Bilirubin (Negative) Urine Urobilinogen (<2.0) mg/dL Ur Leukocyte Esterase (Negative) Disposition Clinical Impression: Pulmonary embolism and infarction Disposition: ADMITTED IP TO THIS [facility] Condition: Good
--- NOTE | 2024-05-03 13:29 | P.DS ---
Providers Date of admission: 04/15/24 14:49 Attending physician: Karlo Padilla MD Consults: 04/15/24 15:09 Consult Physician Stat Consulting Provider: Nicholas Limon Consult Reason/Comments: Pulmonary embolism with infarction and without right heart strain Do you want consulting provider notified?: Yes Primary care physician: Johana Chaidez Hospital Course: Diagnoses: Acute right lower lobe pulmonary embolism and infarction Right lower back pain most likely secondary to above Hypertension Hospital course: This is a pleasant 39 years old male with past medical history of hypertension Presents because of right lower back pain, close to the spine, started last Wednesday about 1 week ago where it woke up him from sleep. CTA of the chest showing right lower lobe acute pulmonary embolism with right lower lobe pulmonary infarct CT of the abdomen and pelvis was negative for acute process showing right lower lobe atelectasis, pneumonia felt less likely Patient was treated with heparin drip, pulmonary service consult was obtained. His anticoagulation is switched to Eliquis with a loading dose upon discharge. Prescription is provided for the patient Importance of adherence to treatment explained to him Patient denies any other complaint Patient was cleared for discharge by pulmonary service Problems and management plan were discussed with the patient and he verbalized understanding and acceptance Patient was found stable and can be discharged home in guarded prognosis however he needs follow-up as an outpatient. Patient was instructed to follow up with PCP Dr. Chaidez within one week and patient agrees Patient was instructed to follow-up with aviation safety officer Dr. Limon in 1 to 2 weeks and he agrees. Also patient was referred to tire bladder maker Dr. Espinoza for outpatient follow-up upon discharge and he agrees Physical exam Gen: patient is a AAOx3, no distress CVS: S1-S2, RRR, no murmur Lungs: B/L CTA, no wheezing Abdomen: soft, no distention, no tenderness, positive bowel sounds Extremity: no leg edema or induration Time spent more than 35 minutes Patient Condition at Discharge: Good Plan - Discharge Summary Discharge Rx Participant: No New Discharge Prescriptions: New traMADol HCl [Ultram] 50 mg PO Q6H PRN 3 Days #12 tab PRN Reason: Pain Continue atenoloL [Tenormin] 25 mg PO DAILY Baclofen [Lioresal] 10 mg PO TID PRN 3 Days #9 tab PRN Reason: Muscle Spasm Losartan Potassium 100 mg PO DAILY No Action predniSONE [Deltasone] 20 mg PO BID #10 tab Apixaban [Eliquis] See Taper PO DIRECTED HYDROcodone/APAP 7.5-325MG [[place] 7.5-325] 1 tab PO Q6HR PRN 3 Days #12 tab PRN Reason: Pain Discharge Medication List Losartan Potassium 100 mg PO DAILY 04/15/24 [History] atenoloL [Tenormin] 25 mg PO DAILY 04/15/24 [History] Baclofen [Lioresal] 10 mg PO TID PRN 3 Days #9 tab 04/17/24 [Rx] traMADol HCl [Ultram] 50 mg PO Q6H PRN 3 Days #12 tab 04/17/24 [Rx] Apixaban [Eliquis] See Taper PO DIRECTED 04/19/24 [History] HYDROcodone/APAP 7.5-325MG [[place] 7.5-325] 1 tab PO Q6HR PRN 3 Days #12 tab 04/19/24 [Rx] predniSONE [Deltasone] 20 mg PO BID #10 tab 04/19/24 [Rx] Follow up Appointment(s)/Referral(s): Connor Espinoza [STAFF PHYSICIAN] - 2 Weeks (Blood disease DrRadha) Johana Chaidez DO [Primary Care Provider] - 1-2 days (Patient to make appointments ) Nicholas Limon DO [Doctor of Osteopathic Medicine] - 1 Week (Patient to make appointments) Patient Instructions/Handouts: Pulmonary Embolism (ED) Activity/Diet/Wound Care/Special Instructions: Heart healthy diet Activity is restricted till you see your doctor Discharge Disposition: HOME SELF-CARE
== END 2024-04-17 14:10 | disposition home or self-care (01) ==
LOC: EC 12:07 → 3SCARD 14:49 → INTOOBSV 14:49 → 3SCARD 17:10
PROVIDERS: ADMIT Internal Medicine; ATTEND Internal Medicine
DX: I26.99 Other pulmonary embolism without acute cor pulmonale (principal); I10 Essential (primary) hypertension; G89.29 Other chronic pain; M54.50 Low back pain, unspecified; Z79.899 Other long term (current) drug therapy
CPT/HCPCS: 96365; 96366; 96376; 96375; 99291; 36415; 94760; 93005; 85379; 80053; 80048; 82150; 83605; 83690; 84484; 85025 ×2; 85610; 85730 ×2; 81003; 71046; 93970; 71275; 74177; G0378 ×3; J1644 ×3; J1885; Q9967; 99285

== ENCOUNTER 2024-04-19 10:45 | Emergency (ER) | payer BC ==
[2024-04-19 10:49] VITALS: RESP 20; TEMP 97.6
--- NOTE | 2024-04-19 11:19 | ED ---
General Adult HPI - General Chief complaint: Extremity Injury, Lower Stated complaint: Recheck-R foot pain Time Seen by Provider: 04/19/24 10:56 Source: patient, RN notes reviewed Mode of arrival: ambulatory Limitations: no limitations - History of Present Illness Initial comments: 39-year-old male presents to the emergency department for evaluation of right foot pain. Patient reports that this has been going on for around 1 week but seems to be getting worse. He notes that he was recently diagnosed with a pulmonary embolism and was hospitalized for this. He was started on Eliquis upon discharge and has been taking as prescribed with no missed doses. He does report that the pain in his foot was going on at the time of the diagnosis but he had a negative ultrasound at that time. He denies any redness. Denies recent fever, chills. He does report that is very painful to ambulate. - Related Data Home Medications Medication Instructions Recorded Confirmed Losartan Potassium 100 mg PO DAILY 04/15/24 04/19/24 atenoloL [Tenormin] 25 mg PO DAILY 04/15/24 04/19/24 Apixaban [Eliquis] See Taper PO DIRECTED 04/19/24 04/19/24 Previous Rx's Medication Instructions Recorded Baclofen [Lioresal] 10 mg PO TID PRN 3 Days #9 tab 04/17/24 traMADol HCl [Ultram] 50 mg PO Q6H PRN 3 Days #12 tab 04/17/24 HYDROcodone/APAP 7.5-325MG [[place] 1 tab PO Q6HR PRN 3 Days #12 tab 04/19/24 7.5-325] predniSONE [Deltasone] 20 mg PO BID #10 tab 04/19/24 Allergies Allergy/AdvReac Type Severity Reaction Status Date / Time tree nut Allergy drooling Verified 04/19/24 11:35 Review of Systems ROS Statement: Those systems with pertinent positive or pertinent negative responses have been documented in the HPI. ROS Other: All systems not noted in ROS Statement are negative. Past Medical History Past Medical History: Hypertension Additional Past Medical History / Comment(s): BACK PAIN History of Any Multi-Drug Resistant Organisms: None Reported Past Surgical History: Back Surgery, Hernia Repair Additional Past Surgical History / Comment(s): HERNIA REPAIR IN 7TH GRADE. Past Anesthesia/Blood Transfusion Reactions: Postoperative Nausea & Vomiting (PONV) Past Psychological History: No Psychological Hx Reported Smoking Status: Never smoker Past Alcohol Use History: Occasional Past Drug Use History: None Reported - Past Family History Mother Family Medical History: No Reported History Father Family Medical History: No Reported History General Exam Limitations: no limitations General appearance: alert, in no apparent distress Head exam: Present: atraumatic, normocephalic, normal inspection Eye exam: Present: normal appearance, PERRL, EOMI. Absent: scleral icterus, conjunctival injection, periorbital swelling ENT exam: Present: normal exam, mucous membranes moist Respiratory exam: Present: normal lung sounds bilaterally. Absent: respiratory distress, wheezes, rales, rhonchi, stridor Cardiovascular Exam: Present: regular rate, normal rhythm, normal heart sounds. Absent: systolic murmur, diastolic murmur, rubs, gallop, clicks Extremities exam: Present: full ROM, normal capillary refill, other (Swelling to the dorsum of the right foot, DP and PT pulses 2+). Absent: tenderness, pedal edema, joint swelling, calf tenderness Neurological exam: Present: alert, oriented X3 Psychiatric exam: Present: normal affect, normal mood Skin exam: Present: warm, dry, intact, normal color. Absent: rash Course Vital Signs 04/19/24 04/19/24 10:47 13:20 Temperature 97.6 F Pulse Rate 69 85 Respiratory 20 20 Rate Blood Pressure 143/93 143/82 O2 Sat by Pulse 99 98 Oximetry Medical Decision Making - Medical Decision Making Was pt. sent in by a medical professional or institution (, PA, SIGNAL MAINTAINER HELPER, urgent care, hospital, or long term...) When possible be specific @ -No Did you speak to anyone other than the patient for history (EMS, parent, family, police, friend...)? What history was obtained from this source @ -No Did you review nursing and triage notes (agree or disagree)? Why? @ -I reviewed and agree with nursing and triage notes Were old charts reviewed (outside hosp., previous admission, EMS record, old EKG, old radiological studies, urgent care reports/EKG's, long term records)? Report findings @ -No old charts were reviewed Differential Diagnosis (chest pain, altered mental status, abdominal pain women, abdominal pain men, vaginal bleeding, weakness, fever, dyspnea, syncope, headache, dizziness, GI bleed, back pain, seizure, CVA, palpatations, mental health, musculoskeletal)? @ -Differential Musculoskeletal Muscular strain, contusion, ligament sprain, fracture, arthritis, septic arthritis, bursitis, cellulitis, muscle spasm, nerve compression, DVT, arterial occlusion, herpes zoster, electrolyte abnormality, tumor.... This is not meant to be in all inclusive list EKG interpreted by me (3pts min.). @ -None X-rays interpreted by me (1pt min.). @ -X-ray of the right foot reveals no acute fracture CT interpreted by me (1pt min.). @ -None done U/S interpreted by me (1pt. min.). @ -Ultrasound of the right lower extremity is negative for DVT What testing was considered but not performed or refused? (CT, X-rays, U/S, labs)? Why? @ -None What meds were considered but not given or refused? Why? @ -None Did you discuss the management of the patient with other professionals (professionals i.e. , PA, SIGNAL MAINTAINER HELPER, lab, RT, psych nurse, adoption social worker, belting and webbing inspector, teacher, gift officer, oil field caser)? Give summary @ -No Was smoking cessation discussed for >3mins.? @ -No Was critical care preformed (if so, how long)? @ -No Were there social determinants of health that impacted care today? How? (Homelessness, low income, unemployed, alcoholism, drug addiction, transportation, low edu. Level, literacy, decrease access to med. care, shelter, rehab)? @ -No Was there de-escalation of care discussed even if they declined (Discuss DNR or withdrawal of care, Hospice)? DNR status @ -No What co-morbidities impacted this encounter? (DM, HTN, Smoking, COPD, CAD, Cancer, CVA, ARF, Chemo, Hep., AIDS, mental health diagnosis, sleep apnea, morbid obesity)? @ -None Was patient admitted / discharged? Hospital course, mention meds given and route, prescriptions, significant lab abnormalities, going to OR and other pertinent info. @ -Discharge. Patient presented to the emergency department for evaluation of right foot pain. X-ray of the right foot was obtained revealing no acute process. Ultrasound reveals no evidence for DVT. Discussed with patient to continue taking his blood thinner as prescribed ensuring that he does not miss any doses. Provided a short-term course of medication for pain control. He was also provided crutches. Advised to follow with his PCP. He is understanding agreeable with plan. Patient stable at time of discharge. Case discussed with Dr. Marsical Undiagnosed new problem with uncertain prognosis? @ -No Drug Therapy requiring intensive monitoring for toxicity (Heparin, Nitro, Insulin, Cardizem)? @ -No Were any procedures done? @ -No Diagnosis/symptom? @ -Right foot pain Acute, or Chronic, or Acute on Chronic? @ -acute Uncomplicated (without systemic symptoms) or Complicated (systemic symptoms)? @ -uncomplicated Side effects of treatment? @ -No Exacerbation, Progression, or Severe Exacerbation? @ -No Poses a threat to life or bodily function? How? (Chest pain, [place], [place], pneumonia, PE, COPD, DKA, ARF, appy, cholecystitis, CVA, Diverticulitis, Homicidal, Suicidal, threat to staff... and all critical care pts) @ -No Disposition Clinical Impression: Foot pain Disposition: HOME SELF-CARE Condition: Stable Instructions (If sedation given, give patient instructions): P.R.I.C.E. Treatment (ED) Additional Instructions: Do not take tramadol and [place] together. Utilize a compression sock. Please follow up with your primary care provider. Return to the emergency department for new or worsening symptoms. Prescriptions: predniSONE [Deltasone] 20 mg PO BID #10 tab HYDROcodone/APAP 7.5-325MG [[place] 7.5-325] 1 tab PO Q6HR PRN 3 Days #12 tab PRN Reason: Pain Is patient prescribed a controlled substance at d/c from ED?: Yes When asked, does pt state using other controlled substances?: Yes If prescribed controlled substance>3 days was MAPS reviewed?: Prescribed <3 Days Referrals: Johana Pollock DO [Primary Care Provider] - 1-2 days
--- NOTE | 2024-04-19 11:49 | XR ---
EXAMINATION TYPE: XR foot complete RT DATE OF EXAM: 04/19/2024 COMPARISON: NONE CLINICAL INDICATION: Male, 39 years old with history of pain; TECHNIQUE: 3 views FINDINGS: Incidental small osseous intermetatarseum on the lateral view. No acute fracture, subluxati on, dislocation is seen. Tiny os peroneum also noted. IMPRESSION: No acute osseous abnormality seen. [facility], , 04/19/2024 11:46 AM
--- NOTE | 2024-04-19 12:08 | US ---
EXAMINATION TYPE: US venous doppler duplex LE RT DATE OF EXAM: 04/19/2024 12:01 PM COMPARISON: NONE CLINICAL INDICATION: Male, 39 years old with history of pain, dx pe; PE on 04/15, Neg US 04/16, "pt. Complains of rt foot pain", TECHNIQUE: The lower extremity deep venous system is examined utilizing real time linear array sonog gael with graded compression, color doppler sonography, and spectral doppler. SIDE PERFORMED: Right FINDINGS: VESSELS IMAGED: Common Femoral Vein Deep Femoral Vein Greater Saphenous Vein * Femoral Vein Popliteal Vein Small Saphenous Vein * Proximal Calf Veins (* superficial vessels) Right Leg: Negative for DVT, Color Doppler imaging shows patency of the vessels. Spectral waveforms are within normal limits. IMPRESSION: No evidence for DVT within the right lower extremity imaged from the groin to the upper calf. [facility], , 04/19/2024 12:06 PM
[2024-04-19] MEDS: HYDROcodone/APAP 7.5-325MG 1 EACH TAB PO ONE (13:18)
[2024-04-19 13:22] VITALS: BP 143/82; PULSE 85
== END 2024-04-19 13:22 | disposition home or self-care (01) ==
LOC: EC 10:45
DX: M79.671 Pain in right foot (principal); Z88.8 Allergy status to other drugs, medicaments and biological substances
CPT/HCPCS: 99284

== ENCOUNTER 2024-05-03 19:19 | Emergency (ER) | payer BC ==
[2024-05-03 19:35] VITALS: TEMP 99.3
[2024-05-03 20:22] LABS: Basophils % (A) 1 %; Eosinophils # (A) 0.1 k/uL (0-0.7); Eosinophils % (A) 2 %; HCT 41.7 % (39.0-53.0); Lymphocytes # (A) 0.7 k/uL (1.0-4.8); Lymphocytes % (A) 23 %; MCH 31.1 pg (25.0-35.0); MCHC 33.6 g/dL (31.0-37.0); MCV 92.7 fL (80.0-100.0); Mean Platelet Volume 7.2; Monocytes # (A) 0.3 k/uL (0-1.0); Monocytes % (A) 9 %; Neutrophils # (A) 1.8 k/uL (1.3-7.7); Neutrophils % (A) 62 %; Platelet Count 133 k/uL (150-450); RDW 12.9 % (11.5-15.5); WBC 2.9 k/uL (3.8-10.6)
[2024-05-03 20:40] LABS: ALT 89 U/L (4-49); AST 73 U/L (17-59); African American GFR (CKD) 85 (>60 ml/min/1.73 sqM); Albumin 4.2 g/dL (3.5-5.0); Alkaline Phosphatase 107 U/L (38-126); Anion Gap 8 mmol/L; Blood Urea Nitrogen 21 mg/dL (9-20); Calcium 9.3 mg/dL (8.4-10.2); Carbon Dioxide 23 mmol/L (22-30); Chloride 106 mmol/L (98-107); Glucose 146 mg/dL (74-99); Non-African American GFR(CKD) 73 (>60 ml/min/1.73 sqM); Potassium 3.9 mmol/L (3.5-5.1); Sodium 137 mmol/L (137-145); Total Bilirubin 0.4 mg/dL (0.2-1.3); Total Protein 6.8 g/dL (6.3-8.2)
[2024-05-03 20:48] LABS: INR 0.9 (<1.2); Partial Thromboplastin Time 25.4 sec (22.0-30.0); Prothrombin Time 10.5 sec (10.0-12.5)
[2024-05-03] MEDS: SODIUM CHLORIDE 0.9% 500 ML 500 ML IV STA (20:51)
--- NOTE | 2024-05-03 21:23 | CT ---
EXAMINATION TYPE: CT chest angio for PE DATE OF EXAM: 05/03/2024 9:01 PM COMPARISON: None. CLINICAL INDICATION: Male, 39 years old with history of known PE with worsening symptoms, Patient rep orts fever since [place] afternoon and has since had back pain. Patient reports symptoms are similar t o the ones he had when he was dx with a PE. TECHNIQUE: CT of the chest is performed on a spiral scan at 2 mm thick sections. Study is performed with intravenous contrast timed for evaluation for pulmonary embolism. This will limit additional po rtions of the evaluation. 3-D MIP images reconstructed by the technologist are reviewed on the compu ter in the coronal and sagittal planes. Contrast used:100mL mL of Isovue 370 with IV Contrast, (none if empty) Oral contrast used: (none if empty) CT DLP: 505.2 mGycm, Automated exposure control for dose reduction was used. FINDINGS: No persistent filling defects are evident to suggest an acute pulmonary embolism. Small filling defe ct may be in the right lower lobe pulmonary artery appears smaller than the comparison suggesting thi s may be some resolving pulmonary embolism from prior. Series 401 image 100. No right heart strain. No mediastinal or hilar adenopathy enlarged by CT criteria is evident. The ascending aorta diameter at the level of the main pulmonary artery is 3.2 cm. The main pulmonary artery diameter at the bifurcation is 3.0 cm. There is posterior right lung base density measuring approximately 3.3 cm could be some atelectasis o r underlying mass. Infarct could be considered. Follow-up is recommended. Limited CT sections were through the upper abdomen. Vague hypodensity may be within the right lobe l iver measuring 2.8 cm. Series 401 and 1.5 IMPRESSION: 1. Likely resolving chronic right lower lobe thrombus. No new acute pulmonary embolism identified. 2. Developing right lower lobe density could be developing infarct. Continued follow-up recommended. 3. Vague hypodensity within the right lobe liver follow-up recommended. [facility], , 05/03/2024 9:21 PM
--- NOTE | 2024-05-03 22:10 | ED ---
General Adult HPI - General Chief complaint: Recheck/Abnormal Lab/Rx Stated complaint: back pain Time Seen by Provider: 05/03/24 19:43 Source: patient Mode of arrival: ambulatory Limitations: no limitations - History of Present Illness Initial comments: 39-year-old male presenting with chief complaint of back pain. Patient reports that he was recently diagnosed with a PE on April 15. He is currently on Eliquis. States he is having similar symptoms when he had his PE and is worried that he has another 1. He is having pain in the thoracic back on the left side. Worse with deep breaths. He is also having intermittent low-grade fevers. No cough, congestion, sore throat, nausea, vomiting, abdominal pain, chest pain, difficulty breathing, lower extremity swelling. - Related Data Home Medications Medication Instructions Recorded Confirmed Losartan Potassium 100 mg PO DAILY 04/15/24 04/19/24 atenoloL [Tenormin] 25 mg PO DAILY 04/15/24 04/19/24 Apixaban [Eliquis] See Taper PO DIRECTED 04/19/24 04/19/24 Previous Rx's Medication Instructions Recorded Baclofen [Lioresal] 10 mg PO TID PRN 3 Days #9 tab 04/17/24 traMADol HCl [Ultram] 50 mg PO Q6H PRN 3 Days #12 tab 04/17/24 HYDROcodone/APAP 7.5-325MG [[place] 1 tab PO Q6HR PRN 3 Days #12 tab 04/19/24 7.5-325] predniSONE [Deltasone] 20 mg PO BID #10 tab 04/19/24 Azithromycin [Zithromax Z Pack] 1 tab PO DIRECTED #6 tab 05/03/24 Allergies Allergy/AdvReac Type Severity Reaction Status Date / Time tree nut Allergy drooling Verified 05/03/24 19:35 Review of Systems ROS Statement: Those systems with pertinent positive or pertinent negative responses have been documented in the HPI. ROS Other: All systems not noted in ROS Statement are negative. Past Medical History Past Medical History: Hypertension, Pulmonary Embolus (PE) Additional Past Medical History / Comment(s): BACK PAIN History of Any Multi-Drug Resistant Organisms: None Reported Past Surgical History: Back Surgery, Hernia Repair Additional Past Surgical History / Comment(s): HERNIA REPAIR IN 7TH GRADE. Past Anesthesia/Blood Transfusion Reactions: Postoperative Nausea & Vomiting (PONV) Past Psychological History: No Psychological Hx Reported Smoking Status: Never smoker Past Alcohol Use History: Occasional Past Drug Use History: None Reported - Past Family History Mother Family Medical History: No Reported History Father Family Medical History: No Reported History General Exam Limitations: no limitations General appearance: alert, in no apparent distress Head exam: Present: atraumatic, normocephalic, normal inspection Eye exam: Present: normal appearance, EOMI Neck exam: Present: normal inspection Respiratory exam: Present: normal lung sounds bilaterally. Absent: respiratory distress, wheezes, rales, rhonchi, stridor Cardiovascular Exam: Present: regular rate, normal rhythm, normal heart sounds. Absent: systolic murmur, diastolic murmur, rubs, gallop, clicks Extremities exam: Present: normal inspection Back exam: Present: normal inspection. Absent: tenderness Neurological exam: Present: alert, oriented X3 Psychiatric exam: Present: normal affect, normal mood Skin exam: Present: warm, dry Course Vital Signs 05/03/24 05/03/24 19:28 22:33 Temperature 99.3 F Pulse Rate 100 84 Respiratory 20 18 Rate Blood Pressure 144/99 133/90 O2 Sat by Pulse 97 99 Oximetry Medical Decision Making - Medical Decision Making Was pt. sent in by a medical professional or institution ([facility], ELEVATOR ERECTOR HELPER, urgent care, hospital, or snf...) When possible be specific @ -No Did you speak to anyone other than the patient for history (EMS, parent, family, police, friend...)? What history was obtained from this source @ -No Did you review nursing and triage notes (agree or disagree)? Why? @ -I reviewed and agree with nursing and triage notes Were old charts reviewed (outside hosp., previous admission, EMS record, old EKG, old radiological studies, urgent care reports/EKG's, snf records)? Report findings @ -Reviewed visit on the involving pulmonary embolism Differential Diagnosis (chest pain, altered mental status, abdominal pain women, abdominal pain men, vaginal bleeding, weakness, fever, dyspnea, syncope, headache, dizziness, GI bleed, back pain, seizure, CVA, palpatations, mental health, musculoskeletal)? @ - [facility] Differential Back Pain: Strain, zoster, cauda equina syndrome, epidural abscess, vertebral osteomyelitis, discitis, fracture, subluxation, disc herniation, DJD, spinal stenosis, dissection, AAA, pancreatitis, peptic ulcer disease, pyelonephritis, kidney stone this is not meant to be an all-inclusive list. EKG interpreted by me (3pts min.). @ -EKG shows sinus rhythm ventricular rate 92. [place] interval 134. QRS 107. QT 323. QTc 373. X-rays interpreted by me (1pt min.). @ -None done CT interpreted by me (1pt min.). @ -CT shows likely resolving chronic right lower lobe thrombus. No new acute pulmonary embolism identified. Developing right lower lobe density could be developing infarct. Continued follow-up recommended. Hypodensity within the lobe liver follow-up recommended U/S interpreted by me (1pt. min.). @ -None done What testing was considered but not performed or refused? (CT, X-rays, U/S, labs)? Why? @ -None What meds were considered but not given or refused? Why? @ -None Did you discuss the management of the patient with other professionals (professionals i.e. , PA, ELEVATOR ERECTOR HELPER, lab, RT, psych nurse, neonatal social worker, regrader, teacher, dental officer, bilingual patient support caseworker)? Give summary @ -No Was smoking cessation discussed for >3mins.? @ -No Was critical care preformed (if so, how long)? @ -No Were there social determinants of health that impacted care today? How? (Homelessness, low income, unemployed, alcoholism, drug addiction, transportation, low edu. Level, literacy, decrease access to med. care, nursing home, rehab)? @ -No Was there de-escalation of care discussed even if they declined (Discuss DNR or withdrawal of care, Hospice)? DNR status @ -No What co-morbidities impacted this encounter? (DM, HTN, Smoking, COPD, CAD, Cancer, CVA, ARF, Chemo, Hep., AIDS, mental health diagnosis, sleep apnea, morbid obesity)? @ -None Was patient admitted / discharged? Hospital course, mention meds given and route, prescriptions, significant lab abnormalities, going to OR and other pertinent info. @ -39-year-old male presenting with chief complaint of thoracic back pain. Feels similar to when he was diagnosed with a pulmonary embolism back in [place]. Wants to make sure he does not have a new pulmonary embolism. History and physical examination are conducted. WBC 2.9. Mild transaminitis. Negative troponin. CTA shows no new pulmonary embolism. Is a developing right lower lobe density. This may be developing infarct, however the patient states he has been having low-grade fevers and has leukopenia, may be infectious in nature and will be treated with azithromycin. Patient is educated on today's findings and treatment plan. Follow-up with PCP. Report back to ER with any new or worsening symptoms. Discussed return parameters and answered all questions. Patient conveyed verbal understanding and agreed to the plan. I discussed this case in detail with my attending Dr. Patel Undiagnosed new problem with uncertain prognosis? @ -No Drug Therapy requiring intensive monitoring for toxicity (Heparin, Nitro, Insulin, Cardizem)? @ -No Were any procedures done? @ -No Diagnosis/symptom? @ -Pneumonia, back pain, resolved pulmonary embolism Acute, or Chronic, or Acute on Chronic? @ -Acute Uncomplicated (without systemic symptoms) or Complicated (systemic symptoms)? @ -Uncomplicated Side effects of treatment? @ -No Exacerbation, Progression, or Severe Exacerbation? @ -No Poses a threat to life or bodily function? How? (Chest pain, [place], [place], pneumonia, PE, COPD, DKA, ARF, appy, cholecystitis, CVA, Diverticulitis, Homicidal, Suicidal, threat to staff... and all critical care pts) @ -Potential but low likelihood at this time - Lab Data Result diagrams: 05/03/24 19:53 05/03/24 19:53 Lab Results 05/03/24 05/03/24 05/03/24 Range/Units 19:53 19:53 19:53 WBC 2.9 L (3.8-10.6) k/uL RBC 4.50 (4.30-5.90) m/uL Hgb 14.0 (13.0-17.5) gm/dL Hct 41.7 (39.0-53.0) % MCV 92.7 (80.0-100.0) fL MCH 31.1 (25.0-35.0) pg MCHC 33.6 (31.0-37.0) g/dL RDW 12.9 (11.5-15.5) % Plt Count 133 L (150-450) k/uL MPV 7.2 Neutrophils % 62 % Lymphocytes % 23 % Monocytes % 9 % Eosinophils % 2 % Basophils % 1 % Neutrophils # 1.8 (1.3-7.7) k/uL Lymphocytes # 0.7 L (1.0-4.8) k/uL Monocytes # 0.3 (0-1.0) k/uL Eosinophils # 0.1 (0-0.7) k/uL Basophils # 0.0 (0-0.2) k/uL PT 10.5 (10.0-12.5) sec INR 0.9 (<1.2) APTT 25.4 (22.0-30.0) sec Sodium 137 (137-145) mmol/L Potassium 3.9 (3.5-5.1) mmol/L Chloride 106 (98-107) mmol/L Carbon Dioxide 23 (22-30) mmol/L Anion Gap 8 mmol/L BUN 21 H (9-20) mg/dL Creatinine 1.23 (0.66-1.25) mg/dL Est GFR (CKD-EPI)AfAm 85 (>60 ml/min/1.73 sqM) Est GFR (CKD-EPI)NonAf 73 (>60 ml/min/1.73 sqM) Glucose 146 H (74-99) mg/dL Calcium 9.3 (8.4-10.2) mg/dL Magnesium 2.0 (1.6-2.3) mg/dL Total Bilirubin 0.4 (0.2-1.3) mg/dL AST 73 H (17-59) U/L ALT 89 H (4-49) U/L Alkaline Phosphatase 107 (38-126) U/L Troponin I (0.000-0.034) ng/mL Total Protein 6.8 (6.3-8.2) g/dL Albumin 4.2 (3.5-5.0) g/dL 05/03/24 Range/Units 19:53 WBC (3.8-10.6) k/uL RBC (4.30-5.90) m/uL Hgb (13.0-17.5) gm/dL Hct (39.0-53.0) % MCV (80.0-100.0) fL MCH (25.0-35.0) pg MCHC (31.0-37.0) g/dL RDW (11.5-15.5) % Plt Count (150-450) k/uL MPV Neutrophils % % Lymphocytes % % Monocytes % % Eosinophils % % Basophils % % Neutrophils # (1.3-7.7) k/uL Lymphocytes # (1.0-4.8) k/uL Monocytes # (0-1.0) k/uL Eosinophils # (0-0.7) k/uL Basophils # (0-0.2) k/uL PT (10.0-12.5) sec INR (<1.2) APTT (22.0-30.0) sec Sodium (137-145) mmol/L Potassium (3.5-5.1) mmol/L Chloride (98-107) mmol/L Carbon Dioxide (22-30) mmol/L Anion Gap mmol/L BUN (9-20) mg/dL Creatinine (0.66-1.25) mg/dL Est GFR (CKD-EPI)AfAm (>60 ml/min/1.73 sqM) Est GFR (CKD-EPI)NonAf (>60 ml/min/1.73 sqM) Glucose (74-99) mg/dL Calcium (8.4-10.2) mg/dL Magnesium (1.6-2.3) mg/dL Total Bilirubin (0.2-1.3) mg/dL AST (17-59) U/L ALT (4-49) U/L Alkaline Phosphatase (38-126) U/L Troponin I <0.012 (0.000-0.034) ng/mL Total Protein (6.3-8.2) g/dL Albumin (3.5-5.0) g/dL Disposition Clinical Impression: Back pain, Pneumonia, Healed or old pulmonary embolism Disposition: HOME SELF-CARE Condition: Fair Instructions (If sedation given, give patient instructions): Pulmonary Embolism (ED), Community Acquired Pneumonia (ED) Additional Instructions: It is important that you follow-up with your PCP and third rigger. Have your labs redrawn in about a week. Report back to ER with any new or worsening symptoms. Prescriptions: Azithromycin [Zithromax Z Pack] 1 tab PO DIRECTED #6 tab Is patient prescribed a controlled substance at d/c from ED?: No Referrals: Johana Pollock DO [Primary Care Provider] - 1-2 days Time of Disposition: 22:10
[2024-05-03 22:34] VITALS: BP 133/90; PULSE 84; RESP 18
== END 2024-05-03 22:37 | disposition home or self-care (01) ==
LOC: EC 19:19
DX: J18.9 Pneumonia, unspecified organism (principal); M54.9 Dorsalgia, unspecified; Z86.711 Personal history of pulmonary embolism; Z91.018 Allergy to other foods
CPT/HCPCS: 36415; 93005; 80053; 83735; 84484; 85025; 85610; 85730; 71275; 99283; Q9967

== ENCOUNTER → 2024-06-19 | Outpatient (CLI) | payer BC ==
--- NOTE | 2024-06-19 18:48 | CT ---
EXAMINATION TYPE: CT angio chest CT DLP: 558 mGycm, Automated exposure control for dose reduction was used. DATE OF EXAM: 06/19/2024 5:32 PM COMPARISON: CTA chest 05/03/2024, 04/15/2024, CT abdomen and pelvis 04/15/2024, 03/22/2022 CLINICAL INDICATION:Male, 39 years old with history of I26.99 PULMONARY EMBOLISM WITHOUT ACUTE COR PU LMON; f/u pe TECHNIQUE/CONTRAST: CTA scan of the thorax is performed with IV Contrast, patient injected with 100ml mL of Isovue 370, p ulmonary embolism protocol. MIP images are created and reviewed. FINDINGS: Pulmonary Artery: There is no evidence for a filling defect within the pulmonary vasculature to sugge st acute pulmonary embolism. Resolution of previously demonstrated pulmonary embolism. The pulmonary artery is of normal size. Lungs/Pleura: No evidence of focal consolidation, pleural effusion or pneumothorax. Stable subcentime ter ground glass opacity within the right lung apex. Decreased posterior right lung base atelectasis. Airway: Large airways are patent. Heart: Heart is within normal limits for size.. No pericardial effusion. Vasculature: No evidence of aortic aneurysm. Mediastinum: No evidence of adenopathy. Musculoskeletal: No acute osseous abnormalities Soft Tissues: Unremarkable. Lower neck: No significant findings. Upper Abdomen: Stable subtle hypodense right hepatic lobe lesion measuring 3.5 cm. Favored to represe nt a hemangioma on prior exams. Stable posterior right peripheral hepatic lobe subcentimeter hyperden se focus. IMPRESSION: Resolution of previously demonstrated pulmonary embolism. No acute pulmonary embolism. [facility], , 06/19/2024 6:46 PM
== END | disposition home or self-care (01) ==
LOC: RADCTMAIN 16:49
PROVIDERS: ATTEND Internal Medicine Critical Care Medicine
DX: I26.99 Other pulmonary embolism without acute cor pulmonale (principal); Z86.711 Personal history of pulmonary embolism
CPT/HCPCS: 71275; Q9967

== ENCOUNTER 2024-08-07 21:32 | Emergency (ER) | payer BC ==
--- NOTE | 2024-08-07 22:07 | ED ---
Back Pain HPI - General Chief Complaint: Neck Pain/Injury Stated Complaint: R Side Shoulder Pain,Headache Time Seen by Provider: 08/07/24 21:53 Source: patient, RN notes reviewed Mode of arrival: ambulatory Limitations: no limitations - History of Present Illness Initial Comments: This is a 39-year-old male who presents to the emergency department for back pain, neck pain, and headaches. States that it started last night. Pain is in the right shoulder and mid back radiating up into his neck and head. Pain is worse with movement. However, states that in March of last year he was having a similar pain and was diagnosed with a pulmonary embolus. He is still on Eliquis and aspirin. They are unsure what caused this. He had a CT scan in May of this year that demonstrated resolution of the clot. Denies any pain in his chest. He is not short of breath, but states that breathing deep occasionally causes pain in this area. MD Complaint: back pain - Related Data Home Medications Medication Instructions Recorded Confirmed Losartan Potassium 100 mg PO DAILY 04/15/24 04/19/24 atenoloL [Tenormin] 25 mg PO DAILY 04/15/24 04/19/24 Apixaban [Eliquis] See Taper PO DIRECTED 04/19/24 04/19/24 Previous Rx's Medication Instructions Recorded Baclofen [Lioresal] 10 mg PO TID PRN 3 Days #9 tab 04/17/24 traMADol HCl [Ultram] 50 mg PO Q6H PRN 3 Days #12 tab 04/17/24 HYDROcodone/APAP 7.5-325MG [[place] 1 tab PO Q6HR PRN 3 Days #12 tab 04/19/24 7.5-325] predniSONE [Deltasone] 20 mg PO BID #10 tab 04/19/24 Azithromycin [Zithromax Z Pack] 1 tab PO DIRECTED #6 tab 05/03/24 Ketorolac [Toradol] 10 mg PO Q6HR PRN #30 tab 08/07/24 methocarbamoL [Robaxin-750] 1,500 mg PO TID PRN #30 tab 08/07/24 Allergies Allergy/AdvReac Type Severity Reaction Status Date / Time tree nut Allergy drooling Verified 08/07/24 21:51 Review of Systems ROS Statement: Those systems with pertinent positive or pertinent negative responses have been documented in the HPI. ROS Other: All systems not noted in ROS Statement are negative. Past Medical History Past Medical History: Hypertension, Pulmonary Embolus (PE) Additional Past Medical History / Comment(s): BACK PAIN History of Any Multi-Drug Resistant Organisms: None Reported Past Surgical History: Back Surgery, Hernia Repair Additional Past Surgical History / Comment(s): HERNIA REPAIR IN 7TH GRADE. Past Anesthesia/Blood Transfusion Reactions: Postoperative Nausea & Vomiting (PONV) Past Psychological History: No Psychological Hx Reported Smoking Status: Never smoker Past Alcohol Use History: Occasional Past Drug Use History: None Reported - Past Family History Mother Family Medical History: No Reported History Father Family Medical History: No Reported History General Exam Limitations: no limitations General appearance: alert, in no apparent distress Head exam: Present: atraumatic, normocephalic, normal inspection Eye exam: Present: normal appearance, PERRL, EOMI. Absent: scleral icterus, conjunctival injection, periorbital swelling Neck exam: Present: normal inspection, full ROM. Absent: tenderness, meningismus, lymphadenopathy Respiratory exam: Present: normal lung sounds bilaterally. Absent: respiratory distress, wheezes, rales, rhonchi, stridor Cardiovascular Exam: Present: regular rate, normal rhythm Neurological exam: Present: alert, oriented X3, CN II-XII intact Psychiatric exam: Present: normal affect, normal mood Skin exam: Present: warm, dry, intact, normal color. Absent: rash Course Vital Signs 08/07/24 21:48 Temperature 98.4 F Pulse Rate 68 Respiratory 18 Rate Blood Pressure 156/98 O2 Sat by Pulse 98 Oximetry Medical Decision Making - Medical Decision Making This is a 39-year-old male who presents to the emergency department for back pain. Was pt. sent in by a medical professional or institution? @ -No Did you speak to anyone other than the patient for history? @ -No Did you review nursing and triage notes? @ -Yes, and I agree, it is accurate with regards to the patient's symptoms. Were old charts reviewed? @ -CTA of the chest from 06/19/2024 demonstrating resolution of previously demonstrated pulmonary embolism. Differential Diagnosis? @ -Differential Back Pain: Strain, zoster, cauda equina syndrome, epidural abscess, vertebral osteomyelitis, discitis, fracture, subluxation, disc herniation, DJD, spinal stenosis, dissection, AAA, pancreatitis, peptic ulcer disease, pyelonephritis, kidney stone, this is not meant to be an all-inclusive list. EKG interpreted by me (3pts min.)? @ -EKG interpreted by me demonstrating the following: Sinus rhythm. Ventricular rate 72 bpm, OR interval 143 ms, QRS duration 104 ms, QTc 370 ms. X-rays interpreted by me (1pt min.)? @ -Not obtained CT interpreted by me (1pt min.)? @ -CT scan of the brain obtained. My interpretation identifies no acute intracranial hemorrhage. CTA of the neck and CTA of the chest obtained. My interpretation identifies no evidence of a carotid dissection or pulmonary embolus. U/S interpreted by me (1pt. min.)? @ -Not obtained What testing was considered but not performed? (CT, X-rays, U/S, labs)? Why? @ -None What meds were considered but not given? Why? @ -None Did you discuss the management of the patient with other professionals? @ -No Did you reconcile home meds? @ -No Was smoking cessation discussed for >3mins.? @ -No Was critical care preformed (if so, how long)? @ -No Were there social determinants of health that impacted care today? How? (Homelessness, low income, unemployed, alcoholism, drug addiction, transportation, low edu. Level, literacy, decrease access to med. care, halfway, rehab)? @ -No Was there de-escalation of care discussed even if they declined? (Discuss DNR or withdrawal of care, Hospice)? @ -No What co-morbidities impacted this encounter? (DM, HTN, Smoking, COPD, CAD, Cancer, CVA, Hep., AIDS, mental health diagnosis, sleep apnea, morbid obesity)? @ -Hx of PE Was patient admitted / discharged? @ -Discharged. Given that his symptoms felt similar to that of the prior PE, we proceeded with more of a workup including lab work and CTA. Lab work unremarkable. CT scan of the brain as well as CTA of the neck and chest obtained revealing no acute process. Symptoms likely musculoskeletal in nature. Pain was treated in the emergency department. Prescription for Toradol and Robaxin provided with dosing instructions reviewed. He does have tramadol he can take at home if needed as well. Patient discharged home in stable condition and advised to follow-up with his PCP. Return precautions reviewed in depth, the patient is instructed to return to the emergency department with any new, worsening, or concerning symptoms. Patient verbalized understanding. Undiagnosed new problem with uncertain prognosis? @ -None Drug Therapy requiring intensive monitoring for toxicity (Heparin, Nitro, Insulin, Cardizem)? @ -None Were any procedures done? @ -None Diagnosis/symptom? @ -Back pain Acute, or Chronic, or Acute on Chronic? @ -Acute Uncomplicated (without systemic symptoms) or Complicated (systemic symptoms)? @ -Uncomplicated Side effects of treatment? @ -None Exacerbation, Progression, or Severe Exacerbation] @ -Not applicable Poses a threat to life or bodily function? @ -No - Lab Data Result diagrams: 08/07/24 22:07 08/07/24 22:07 Lab Results 08/07/24 08/07/24 08/07/24 Range/Units 22:07 22:07 22:07 WBC 7.8 (3.8-10.6) k/uL RBC 4.56 (4.30-5.90) m/uL Hgb 14.2 (13.0-17.5) gm/dL Hct 42.7 (39.0-53.0) % MCV 93.7 (80.0-100.0) fL MCH 31.2 (25.0-35.0) pg MCHC 33.3 (31.0-37.0) g/dL RDW 13.4 (11.5-15.5) % Plt Count 165 (150-450) k/uL MPV 7.5 Neutrophils % 50 % Lymphocytes % 38 % Monocytes % 7 % Eosinophils % 3 % Basophils % 0 % Neutrophils # 3.9 (1.3-7.7) k/uL Lymphocytes # 2.9 (1.0-4.8) k/uL Monocytes # 0.5 (0-1.0) k/uL Eosinophils # 0.2 (0-0.7) k/uL Basophils # 0.0 (0-0.2) k/uL PT 10.0 (10.0-12.5) sec INR 0.9 (<1.2) APTT 24.1 (22.0-30.0) sec Sodium 136 L (137-145) mmol/L Potassium 3.7 (3.5-5.1) mmol/L Chloride 101 (98-107) mmol/L Carbon Dioxide 26 (22-30) mmol/L Anion Gap 9 mmol/L BUN 18 (9-20) mg/dL Creatinine 1.24 (0.66-1.25) mg/dL Est GFR (CKD-EPI)AfAm 84 (>60 ml/min/1.73 sqM) Est GFR (CKD-EPI)NonAf 73 (>60 ml/min/1.73 sqM) Glucose 101 H (74-99) mg/dL Calcium 9.9 (8.4-10.2) mg/dL Total Bilirubin 0.3 (0.2-1.3) mg/dL AST 41 (17-59) U/L ALT 40 (4-49) U/L Alkaline Phosphatase 93 (38-126) U/L Troponin I (0.000-0.034) ng/mL Total Protein 7.1 (6.3-8.2) g/dL Albumin 4.3 (3.5-5.0) g/dL 08/07/24 Range/Units 22:07 WBC (3.8-10.6) k/uL RBC (4.30-5.90) m/uL Hgb (13.0-17.5) gm/dL Hct (39.0-53.0) % MCV (80.0-100.0) fL MCH (25.0-35.0) pg MCHC (31.0-37.0) g/dL RDW (11.5-15.5) % Plt Count (150-450) k/uL MPV Neutrophils % % Lymphocytes % % Monocytes % % Eosinophils % % Basophils % % Neutrophils # (1.3-7.7) k/uL Lymphocytes # (1.0-4.8) k/uL Monocytes # (0-1.0) k/uL Eosinophils # (0-0.7) k/uL Basophils # (0-0.2) k/uL PT (10.0-12.5) sec INR (<1.2) APTT (22.0-30.0) sec Sodium (137-145) mmol/L Potassium (3.5-5.1) mmol/L Chloride (98-107) mmol/L Carbon Dioxide (22-30) mmol/L Anion Gap mmol/L BUN (9-20) mg/dL Creatinine (0.66-1.25) mg/dL Est GFR (CKD-EPI)AfAm (>60 ml/min/1.73 sqM) Est GFR (CKD-EPI)NonAf (>60 ml/min/1.73 sqM) Glucose (74-99) mg/dL Calcium (8.4-10.2) mg/dL Total Bilirubin (0.2-1.3) mg/dL AST (17-59) U/L ALT (4-49) U/L Alkaline Phosphatase (38-126) U/L Troponin I <0.012 (0.000-0.034) ng/mL Total Protein (6.3-8.2) g/dL Albumin (3.5-5.0) g/dL - Radiology Data Radiology results: report reviewed, image reviewed Disposition Clinical Impression: Back pain, Neck pain Disposition: HOME SELF-CARE Instructions (If sedation given, give patient instructions): Cervical Strain (ED), Back Pain (ED) Additional Instructions: Return to the emergency department with any new, worsening, or concerning symptoms. Take the Toradol with Tylenol as needed for pain relief. If you choose to take the Toradol, do not take any other anti-inflammatories such as ibuprofen, take one or the other. Take the Robaxin as 1 to 2 tablets up to 3-4 times daily. Follow up with your primary care provider in 1-2 days. Prescriptions: methocarbamoL [Robaxin-750] 1,500 mg PO TID PRN #30 tab PRN Reason: Pain Ketorolac [Toradol] 10 mg PO Q6HR PRN #30 tab PRN Reason: Pain Is patient prescribed a controlled substance at d/c from ED?: No Referrals: Johana Pollock DO [Primary Care Provider] - 1-2 days Time of Disposition: 00:08
[2024-08-07] MEDS: KETOROLAC 15 MG/ML 1 ML VIAL IVP STA ×2 (22:11→23:24)
[2024-08-07] MEDS: MORPHINE SULFATE 4 MG/ML SYRINGE IVP STA (22:12)
[2024-08-07] MEDS: ORPHENADRINE 30 MG/ML 2 ML VIAL IVP STA (22:12)
[2024-08-07 22:42] LABS: Basophils % (A) 0 %; Eosinophils # (A) 0.2 k/uL (0-0.7); Eosinophils % (A) 3 %; HCT 42.7 % (39.0-53.0); HGB 14.2 gm/dL (13.0-17.5); Lymphocytes # (A) 2.9 k/uL (1.0-4.8); Lymphocytes % (A) 38 %; MCH 31.2 pg (25.0-35.0); MCHC 33.3 g/dL (31.0-37.0); MCV 93.7 fL (80.0-100.0); Mean Platelet Volume 7.5; Monocytes # (A) 0.5 k/uL (0-1.0); Monocytes % (A) 7 %; Neutrophils # (A) 3.9 k/uL (1.3-7.7); Neutrophils % (A) 50 %; Platelet Count 165 k/uL (150-450); RBC 4.56 m/uL (4.30-5.90); RDW 13.4 % (11.5-15.5); WBC 7.8 k/uL (3.8-10.6)
[2024-08-07 22:51] LABS: ALT 40 U/L (4-49); AST 41 U/L (17-59); African American GFR (CKD) 84 (>60 ml/min/1.73 sqM); Albumin 4.3 g/dL (3.5-5.0); Alkaline Phosphatase 93 U/L (38-126); Anion Gap 9 mmol/L; Blood Urea Nitrogen 18 mg/dL (9-20); Calcium 9.9 mg/dL (8.4-10.2); Carbon Dioxide 26 mmol/L (22-30); Chloride 101 mmol/L (98-107); Glucose 101 mg/dL (74-99); Non-African American GFR(CKD) 73 (>60 ml/min/1.73 sqM); Potassium 3.7 mmol/L (3.5-5.1); Sodium 136 mmol/L (137-145); Total Bilirubin 0.3 mg/dL (0.2-1.3); Total Protein 7.1 g/dL (6.3-8.2)
--- NOTE | 2024-08-07 22:51 | CT ---
EXAMINATION TYPE: CT brain wo con DATE OF EXAM: 08/07/2024 10:45 PM COMPARISON: None. CLINICAL INDICATION: Male, 39 years old with history of Headache, Pt is having complaints of right si ded back pain and neck pain stating it feels tight and is causing him to have a headache that started this morning TECHNIQUE: Brain: Axial CT images of the brain were obtained with coronal and sagittal reformats created and rev iewed. Contrast used: None. Oral contrast used: None. CT DLP: 972.63 mGycm, Automated exposure control for dose reduction was used. FINDINGS: Brain: Extra-axial spaces: No abnormal extra-axial fluid collections. Ventricular system: Within normal limits Cerebral parenchyma: No acute intraparenchymal hemorrhage or mass effect. The antonio-white junction is well differentiated. Cerebellum: Unremarkable. Mass effect: No evidence of midline shift. Intracranial vasculature: unremarkable Soft tissues: Normal. Calvarium/osseous structures: No depressed skull fracture. Paranasal sinuses and mastoid air cells: Mild scattered paranasal sinus disease. Visualized orbits: Orbital contents are intact. IMPRESSION: No acute intracranial process. [facility], , 08/07/2024 10:49 PM
--- NOTE | 2024-08-07 22:53 | CT ---
EXAMINATION TYPE: CT angio chest DATE OF EXAM: 08/07/2024 10:43 PM COMPARISON: 04/14/2024 CLINICAL INDICATION: Male, 39 years old with history of Chest pain, back pain, neck pain; Pt is havin g complaints of right sided back pain and neck pain stating it feels tight and is causing him to have a headache that started this morning TECHNIQUE/CONTRAST: CTA scan of the thorax is performed with IV Contrast, patient injected with 50 mL of Isovue 370, MIP images are created and reviewed these are created on a separate workstation.. CT DLP: 972.63 mGycm, Automated exposure control for dose reduction was used. FINDINGS: Lungs/Pleura: No evidence of focal consolidation, pleural effusion or pneumothorax. Airway: Large airways are patent. Heart: Size within normal limits. No significant coronary artery calcifications. Vasculature: There is no evidence for a filling defect within the pulmonary vasculature to suggest ac cyndy pulmonary embolism. The pulmonary artery is of normal size. Mediastinum: No gross evidence of adenopathy. Musculoskeletal: No acute osseous abnormalities Soft Tissues/lymph nodes: Unremarkable. Lower neck: No significant findings. Upper Abdomen: Stable hepatic lobe lesion which is hypointense possibly with peripheral enhancement s uggesting hemangioma. IMPRESSION: No evidence of pulmonary embolism. Follow up recommendations for incidental pulmonary nodules, if there are any, are per [employer] or [employer] [place] [employer]. https://radiopaedia.org/articles/[email or web address]?lang=us [facility], , 08/07/2024 10:51 PM
--- NOTE | 2024-08-07 22:56 | CT ---
EXAMINATION TYPE: CT angio neck DATE OF EXAM: 08/07/2024 10:45 PM COMPARISON: None CLINICAL INDICATION: Male, 39 years old with history of Chest pain, back pain, neck pain; Pt is jack dunaway complaints of right sided back pain and neck pain stating it feels tight and is causing him to have a headache that started this morning TECHNIQUE: Axially acquired helical CT Angiogram of the Neck was obtained with and without contrast. Axial images are supplemented with coronal and sagittal MIP reconstructions. 3D reconstructions were also performed and were post-processed at an independent workstation. Estimated carotid stenosis was calculated using the NASCET criteria. Contrast used:50 mL of Isovue 370 with IV Contrast, Oral contrast used: , None. CT DLP: 972.63 mGycm, Automated exposure control for dose reduction was used. FINDINGS: CTA NECK: Right Carotid System: The common carotid artery and external carotid artery are patent. The carotid bifurcation demonstrate s no evidence of hemodynamically significant stenosis. The remaining portions of the internal carotid artery demonstrate normal size without significant narrowing. Left Carotid System: The common carotid artery and external carotid artery are patent. The carotid bifurcation demonstrate s no evidence of hemodynamically significant stenosis. The remaining portions of the internal carotid artery demonstrate normal size without significant narrowing. Vertebral arteries are patent without evidence hemodynamically significant stenosis. Dominant left ve rtebral artery system smaller caliber right. The right vertebral artery may terminate as a posterior inferior cerebellar artery. There is a three-vessel aortic arch. The origins of the great vessels are patent. No evidence of hemo dynamically significant stenosis. Upper thorax: IMPRESSION: No evidence of dissection of the cervical internal carotid arteries or vertebral arteries or any evid ence of significant stenosis at the carotid bifurcations. [facility], , 08/07/2024 10:53 PM
[2024-08-07 23:02] LABS: INR 0.9 (<1.2); Partial Thromboplastin Time 24.1 sec (22.0-30.0)
[2024-08-07] MEDS: LIDOCAINE 4% PATCH TOPICAL ONE (23:25)
[2024-08-07] MEDS: HYDROmorphone 1 MG/ML 1 ML SYRINGE IVP STA (23:25)
[2024-08-07] MEDS: SODIUM CHLORIDE 0.9% 1,000 ML IV ONE (23:26)
[2024-08-08 00:38] VITALS: BP 153/91; PULSE 56; RESP 16; TEMP 97.9
== END 2024-08-08 00:30 | disposition home or self-care (01) ==
LOC: EC 21:32
DX: M54.2 Cervicalgia (principal); M54.6 Pain in thoracic spine; Z91.018 Allergy to other foods; Z86.711 Personal history of pulmonary embolism
CPT/HCPCS: 36415; 93005; 80053; 84484; 85025; 85610; 85730; 70450; 70498; 71275; 96374; 96375 ×3; 96376; 96361; 99285; J2270; J2360; J1171; J1885; Q9967